=== PATIENT | female | born 1950 | race Caucasian/White ===

== ENCOUNTER 2019-11-02 17:14 | Inpatient (IN) | payer MEDICARE, BC, OTHER ==
[~2019-11-02] VITALS: Ht 142.2 cm; Wt 41.7 kg
[~2019-11-02 17:14] MED LIST: ADVIL200 MG PO; AMBIEN5 MG PO; AMITRIPTYLINE100 MG PO; AMLODIPINE BESY10 MG PO; AZILECT1 MG PO; BENEDRYL PO; CARVEDILOL6.25 MG PO; COMBIPATCH 0.01 EAC1; COMBIPATCH 0.01 EAC1 TP; DAYQUIL PO; ETOMIDATE 2 MG/ML 10 ML INJ IV ONE; GABAPENTIN300 MG PO; HYDROXYCHLOROQ200 MG PO; LOMOTIL TABLET1 EACH PO; LOSARTAN POTAS100 MG PO; MAXALT10 MG PO; METHADONE HCL10 MG PO; MIDAZOLAM HCL 2 MG/2 ML VIAL ONE; NORCO 5-325 TA1 EACH PO; PANTOPRAZOLE SO40 MG PO; PROMETHAZINE HC25 M1 PO; SUMATRIPTAN INJ; VALTREX500 MG PO; VECURONIUM BROMIDE FOR INJ 20 MG VIAL ONE; VITAMIN D PO; WATER STERILE 10 ML VIAL ONE
[2019-11-02] MEDS ORDERED: CEFEPIME 1GM/NS 0.9% 50 ML 50 ML IV STA (17:22)
[2019-11-02] MEDS ORDERED: SODIUM CHLORIDE 0.9% 1000ML 1,000 ML IV STA (17:22)
--- OUTSIDE RECORDS SUMMARY | 2019-11-02 17:30 | XMS REPORT | Clinical Summary ---
Author Author [facility] Organization [facility] Address Unknown Phone Unavailable Care Team Providers Care Mechanical Intern Name Role Phone Ulises Palomares MD PCP Allergies No Known Allergies Medications End Date Status Medication Sig Dispensed Refills Start Date Active pantoprazole (PROTONIX) TK 1 T PO BID 0 40 MG EC tablet 6 Active amLODIPine (NORVASC) 10 TK 1 T PO QD 0 MG tablet 6 Active zolpidem (AMBIEN) 10 mg TK 1 T PO QHS 0 tablet 6 Active methadone (DOLOPHINE) 10 TK 1 T PO BID 0 10/31 MG tablet PRN 6 Active carvedilol (COREG) 6.25 TK 1 T PO BID 1 MG tablet WITH FOOD 6 Active promethazine (PHENERGAN) TK 1 T PO Q 8 1 11/14 25 MG tablet H 6 Active donepezil (ARICEPT) 5 MG TK 1 T PO HS 2 11/14 tablet 6 Active amitriptyline (ELAVIL) TK 1 T PO HS 1 01 100 MG tablet 6 Active rizatriptan (MAXALT) 10 2 MG tablet 6 Active selegiline (ELDEPRYL) 5 TK 1 C PO 5 mg capsule WITH 6 BREAKFAST OR LUNCH FOR 1 WEEK THEN INCREASE TO BID Active pramipexole (MIRAPEX) TK 1 T PO TID 1 11/15/19 1 0.25 MG tablet BEFORE 6 BEDTIME Active hydroxychloroquine TK 1 T PO BID 3 (PLAQUENIL) 200 mg tablet 6 Active gabapentin (NEURONTIN) TK 1 C PO QHS 3 01 300 MG capsule 6 Active rasagiline (AZILECT) 1 MG TK 1 T PO QD 1 11/28 tablet 7 Active predniSONE (DELTASONE) 5 TK 1 T PO 3 12/14 mg tablet QD. 7 Active methotrexate 2.5 MG TK 4 TS PO Q 4 tablet WEEK. 7 Active folic acid (FOLVITE) 1 MG TK 1 T PO QD 5 11/28 tablet 7 Active ESTRACE 0.01 % (0.1 Insert 0.5 42.5 g 0 mg/gram) vaginal Gram into 8 creamIndications: vagina three Postmenopausal atrophic times a week. vaginitis Active valACYclovir (VALTREX) TAKE 1 TABLET 10 tablet 0 0 500 MG tabletIndications: BY MOUTH 8 HSV (herpes simplex TWICE DAILY virus) anogenital FOR 5 DAYS infection Active Problems Problem Noted Date Acid reflux Family History Relation Name Status Comments Brother Alive Father muscle disease (Age 81) Mother Alive Sister Alive Social History Date Tobacco Use Types Packs/Day Years Used Current Every Day Smoker Cigarettes 1 45 Tobacco Cessation: Ready to Quit: Yes; C ounseling Given: No Drinks/Week oz/Week Comments Alcohol Use No Sex Assigned at Date Recorded Not on file Industry Job Start Date Occupation Not on file Not on file Not on file Travel End Travel History Travel Start No recent travel history available. Last Filed Vital Signs Not on file Plan of Treatment Health Maintenance Due Date Last Done Comments BREAST CANCER SCREENING 1998 COLONOSCOPY SCREENING 1998 SHINGLES VACCINES (#1) 1998 65+ PNEUMOCOCCAL VACCINE 2013 (1 of 2 - PCV13) INFLUENZA VACCINE 12/30/2019 Results Not on fileafter 11/01/2018 Insurance Type Payer Benefit Subscriber ID Effective Phone Address Plan / Dates Group Medicare MEDICARE MEDICARE xxxxxxxxxx 2013- [place], PART A AND Present [place] B PPO BCBS BCBS xxxxxxxxxxxx 2013-P CARLOS arce PPO/ADELA NAVA PPO Advance Directives For more information, please contact: [phone] Patient Tour Driver Explanation Type Date Recorded Advance Directives, Living Will and 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
[2019-11-02 18:15] LABS: ALANINE AMINOTRANSFERASE 20 IU/L (0-55); ALBUMIN 3.3 g/dL (3.5-5.0); ALBUMIN/GLOBULIN RATIO 1.1 (0.8-2.0); ALKALINE PHOSPHATASE 68 IU/L (40-150); ANION GAP 14.5 mmol/L (8-16); BLOOD UREA NITROGEN 5 mg/dL (7-26); BUN/CREATININE RATIO 8 (6-25); CALCIUM 6.6 mg/dL (8.4-10.2); CARBON DIOXIDE 28 mmol/L (22-29); CHLORIDE 100 mmol/L (98-107); CREATINE KINASE 185 IU/L (29-168); CREATININE, SERUM 0.63 mg/dL (0.57-1.11); EST GLOMERULAR FILTRATION RATE > 60 ML/MIN (60-); GLUCOSE 136 mg/dL (74-118); POTASSIUM 3.5 mmol/L (3.5-5.1); SODIUM 139 mmol/L (136-145)
[2019-11-02 18:17] LABS: BASOPHILS % 0.1 % (0.0-1.0); HEMATOCRIT 25.9 % (34.2-44.1); HEMOGLOBIN 7.5 g/dL (12.0-16.0); LYMPHOCYTES % 1.3 % (18.0-39.1); MEAN CORPUSCULAR HEMOGLOBIN 23.6 pg (28-32); MEAN CORPUSCULAR HGB CONC 23.6 g/dL (31-35); MEAN CORPUSCULAR VOLUME 81.4 fL (81-99); MONOCYTES % 0.7 % (4.4-11.3); NEUTROPHILS % 8.4 % (38.7-80.0); PLATELET COUNT 438 x10e3/uL (140-360); RED BLOOD COUNT 3.18 x10e6/uL (3.6-5.1); RED CELL DISTRIBUTION WIDTH 19.4 % (11.7-14.4)
--- NOTE | 2019-11-02 18:55 | Emergency Department Note ---
History of Present Illnes History of Present Illness Chief Complaint: Respiratory History of Present Illness This is a 69 year old female to the ED complains of shortness of breath, consistent spicy and gravis crisis. Chief Complaint Comment HISTORY OF MYASTHENIA GRAVIS, CALLED EMS FOR TROUBLE BREATHING, WAS IN 88% [facility]2 [facility]. CLIENT WAS GIVEN XOPENEX, IPRAPTROPIUM, SOLU MEDROL 125 AND TERBUTALINE ADVICE NURSE, CLIENT WAS 99% O2 SATS ON ARRIVAL WITH EMS. Historian: Patient Arrival Mode: Car Onset (how long ago): day(s) Onset quality: sudden Timing of current episode: constant Progression: worsening Past Medical/Family History Physician Review I have reviewed the patient's past medical and family history. Any updates have been documented here. Past Medical History Recent Fever: No Clinical Suspicion of Infectio: No New/Unexplained Change in Ment: No Other Medical History: MYASTHENIA GRAVIS Social History Smoking Cessation: Never Smoker Counseling Performed: No Alcohol Use: None Any Illegal Drug Use: No TB Exposure/Symptoms: No Physically hurt or threatened: No Other Any Pre-Existing Lines (PICC,: No Is patient up to date on immun: Yes Last Flu: utd Last Pneumovax: utd Review of Systems Review of Systems Constitutional: no symptoms EENTM: no symptoms Cardiovascular: no symptoms Respiratory: as per HPI, cough, dyspnea Gastrointestinal: no symptoms Genitourinary: no symptoms Musculoskeletal: no symptoms Neurological: no symptoms Psychological: no symptoms Endocrine: no symptoms Hematological/Lymphatic: no symptoms Review of other systems All other systems reviewed and negative. Physical Exam Related Data Allergies: Coded Allergies: No Known Drug Allergies (Verified Allergy, Unknown, 10/18/07) Uncoded Allergies: PLASTIC TAPE (Allergy, Unknown, 10/18/07) Triage Vital Signs Vital Signs Date Time Temp Pulse Resp B/P (MAP) Pulse Ox O2 Delivery O2 Flow Rate FiO2 11/02/19 17:17 98.1 94 14 104/69 100 Vital signs reviewed: Yes Physical Exam CONSTITUTIONAL Constitutional: well-developed, well-nourished, ill appearing HENT HENT: normocephalic, atraumatic, oropharynx clear/moist, nose normal HENT L/R: left ext ear normal, right ext ear normal EYES Eyes: PERRL, conjunctivae normal NECK Neck: ROM normal PULMONARY Pulmonary: respiratory distress CARDIOVASCULAR Cardiovascular: regular rhythm, tachycardia GASTROINTESTINAL Abdominal: soft, nontender, bowel sounds normal GENITOURINARY Genitourinary: exam deferred SKIN Skin: warm, dry MUSCULOSKELETAL Musculoskeletal: ROM normal NEUROLOGICAL Neurological: alert, oriented x 3, no gross motor or sensory deficits PSYCHOLOGICAL Psychological: mood/affect normal, judgement normal Results Laboratory Result Diagram: 11/02/19 1729 11/02/19 1729 Laboratory Laboratory Tests Test 11/02/19 17:29 White Blood Count 10.51 x10e3/uL (4.8-10.8) Red Blood Count 3.18 x10e6/uL (3.6-5.1) Hemoglobin 7.5 g/dL (12.0-16.0) Hematocrit 25.9 % (34.2-44.1) Mean Corpuscular Volume 81.4 fL (81-99) Mean Corpuscular Hemoglobin 23.6 pg (28-32) Mean Corpuscular Hemoglobin Concent 23.6 g/dL (31-35) Red Cell Distribution Width 19.4 % (11.7-14.4) Platelet Count 438 x10e3/uL (140-360) Neutrophils (%) (Auto) 8.4 % (38.7-80.0) Lymphocytes (%) (Auto) 1.3 % (18.0-39.1) Monocytes (%) (Auto) 0.7 % (4.4-11.3) Eosinophils (%) (Auto) 0.0 % (0.0-6.0) Basophils (%) (Auto) 0.1 % (0.0-1.0) Neutrophils # (Auto) (2.1-6.9) Lymphocytes # (Auto) (1.0-3.2) Monocytes # (Auto) (0.2-0.8) Eosinophils # (Auto) (0.0-0.4) Basophils # (Auto) (0.0-0.1) Absolute Immature Granulocyte (auto x10e3/uL (0-0.1) Sodium Level 139 mmol/L (136-145) Potassium Level 3.5 mmol/L (3.5-5.1) Chloride Level 100 mmol/L (98-107) Carbon Dioxide Level 28 mmol/L (22-29) Anion Gap 14.5 mmol/L (8-16) Blood Urea Nitrogen 5 mg/dL (7-26) Creatinine 0.63 mg/dL (0.57-1.11) Estimat Glomerular Filtration Rate > 60 ML/MIN (60-) BUN/Creatinine Ratio 8 (6-25) Glucose Level 136 mg/dL (74-118) Lactic Acid Level 1.8 mmol/L (0.5-2.0) Calcium Level 6.6 mg/dL (8.4-10.2) Total Bilirubin 0.5 mg/dL (0.2-1.2) Aspartate Amino Transf (AST/SGOT) 25 IU/L (5-34) Alanine Aminotransferase (ALT/SGPT) 20 IU/L (0-55) Alkaline Phosphatase 68 IU/L (40-150) Creatine Kinase 185 IU/L (29-168) Creatine Kinase MB 2.00 ng/mL (0-5.0) Troponin I 0.029 ng/mL (0-0.300) Total Protein 6.2 g/dL (6.5-8.1) Albumin 3.3 g/dL (3.5-5.0) Globulin 2.9 g/dL (2.3-3.5) Albumin/Globulin Ratio 1.1 (0.8-2.0) Lab results reviewed: Yes Critical Care Time Subsequent provider I assumed direction of critical care for this patient from another provider of my specialty. Assessment & Plan Assessment & Plan Final Impression: (1) ACUTE RESPIRATORY FAILURE WITH HYPERCAPNIA (2) ACUTE RESPIRATORY DISTRESS Assessment & Plan Patient to the ED in acute respiratory distress, question history of myasthenia gravis crisis. Patient was immediately placed on BiPAP. Indication for BiPAP was due to respiratory distress secondary to an underlying pulmonary issue. There was no infectious etiology present at time of initial ED evaluation. Patient's lab work reviewed further workup including imaging and disposition was given to Dr. Holloway. Dr. Villanueva was consulted from pulmonary for further workup and management. Physostigmine possibly given according to his bilateral recommendation. Depart Disposition: ADMITTED Last Vital Signs Date Time Temp Pulse Resp B/P (MAP) Pulse Ox O2 Delivery O2 Flow Rate FiO2 11/02/19 18:52 90 12 106/70 100 11/02/19 17:19 98.4 Home Meds Reported Medications [Dayquil] No Conflict Check, PO DAILY 06/15/14 [Benedryl] No Conflict Check, PO DAILY 06/15/14 Ibuprofen (ADVIL) 200 Mg Tablet, 200 MG PO PRN 06/15/14 [Vitamin D] No Conflict Check, 15564 PO WEEKLY 06/15/14 Gabapentin (GABAPENTIN) 300 Mg Capsule, 300 MG PO DAILY, #60 CAP 06/15/14 Hydroxychloroquine Sulfate (HYDROXYCHLOROQUINE SULFATE) 200 Mg Tablet, 200 MG PO BID PRN for G 06/15/14 Rasagiline Mesylate (AZILECT) 1 Mg Tablet, 1 MG PO DAILY 06/15/14 [Sumatriptan] No Conflict Check, 6 MG INJ DAILY 06/15/14 Promethazine Hcl (PROMETHAZINE HCL) 25 Mg Tablet, 25 MG PO DAILY, TAB 06/15/14 Rizatriptan Benzoate (MAXALT) 10 Mg Tablet, 10 MG PO PRN 06/15/14 Amitriptyline Hcl (AMITRIPTYLINE HCL) 100 Mg Tablet, 100 MG PO DAILY 06/15/14 Pantoprazole Sodium* (PROTONIX) 40 Mg Tablet.dr, 40 MG PO DAILY, TAB 06/15/14 Methadone Hcl (METHADONE HCL) 10 Mg Tablet, 10 MG PO DAILY 06/15/14 Hydrocodone Bit/Acetaminophen (NORCO 5-325 TABLET) 1 Each Tablet, 1-2 TAB PO Q4 PRN 10/17/12 Zolpidem Tartrate (AMBIEN) 5 Mg Tablet, 5 MG PO BEDTIME 10/13/12 Estradiol/Noreth Ac (COMBIPATCH 0.05-0.25 MG PTCH) 1 Each Patch.tdsw, 2XW, #1 WEDNESDAY AND Wednesday10/13/12 Valacyclovir Hcl (VALTREX) 500 Mg Tab, 500 MG PO PRN 10/13/12 Diphenoxylate Hcl/Atropine (LOMOTIL TABLET) 1 Each Tablet, PO PRN 10/13/12 Losartan Potassium (LOSARTAN POTASSIUM) 100 Mg Tablet, 100 MG PO HS 10/13/12 Carvedilol (CARVEDILOL) 6.25 Mg Tablet, 6.25 MG PO BID 10/13/12 Amlodipine Besylate (AMLODIPINE BESYLATE) 10 Mg Tablet, 10 MG PO DAILY 10/13/12 Medications in the ED Sodium Chloride 1,000 ml @ 0 mls/hr Q0M STAT IV Last administered on 11/02/19at 18:15; Admin Dose 999 MLS/HR; Start 11/02/19 at 17:22; Stop 11/02/19 at 17:27; Status DC Cefepime HCl 50 ml @ 50 mls/hr ONCE STAT IV Last administered on 11/02/19at 18:15; Admin Dose 50 MLS/HR; Start 11/02/19 at 17:22; Stop 11/02/19 at 18:21; Status DC Sodium Chloride 1,000 ml @ 150 mls/hr Q6H40M IV ; Start 11/02/19 at 18:30; Stop 12/02/19 at 18:29 Physician Attestation Provider Attestation Patient signed to Dr. Holloway for further workup and final disposition. ANKUSH MIRANDA DO Nov 02, 2019 18:55
--- NOTE | 2019-11-02 19:29 | Diagnostic Imaging Report ---
EXAMINATION: CHEST SINGLE (PORTABLE) INDICATION: Respiratory distress. COMPARISON: None FINDINGS: Rotation on the film. TUBES and LINES: None. LUNGS: Lungs are well inflated. There are bibasilar atelectasis. There is mild prominence of the central pulmonary vasculature, consistent with pulmonary venous congestion. Mild bilateral perihilar, peribronchial thickening and perihilar streaky densities. PLEURA: No pleural effusion or pneumothorax. HEART AND MEDIASTINUM: Cardiac size is moderately enlarged. BONES AND SOFT TISSUES: No acute osseous lesion. Soft tissues are unremarkable. UPPER ABDOMEN: No free air under the diaphragm. IMPRESSION: Findings suggestive of pulmonary venous congestion and interstitial edema. Superimposed viral infection or reactive airway disease cannot be excluded. Signed by: Dr. Jacquie Cobos M.D. on 11/02/2019 7:26 PM
[2019-11-02] MEDS ORDERED: HYDROXYCHLOROQUINE SULFATE 200 MG TAB PO PRN (19:45)
--- OUTSIDE RECORDS SUMMARY | 2019-11-02 20:07 | XMS REPORT | Continuity of Care Document ---
Author Author [facility] t Organization [facility] Address [address] [place] [address] Phone Unavailable Care Team Providers Care Pump House Technician Name Role Phone Ulises Palomares MD PCP Tony CLEMONS Attphyrebecca Unavailable Tony CLEMONS Admluisa Unavailable Problems Condition Name Condition Details Condition Category Status Onset Date Resolution Date Last Treatment Date Treating Clinician Comments Source Acid reflux Acid reflux Disease Active Farooq Moran Allergies, Adverse Reactions, Alerts This patient has no known allergies or adverse reactions. Social History Social Habit Start Date Stop Date Quantity Comments Source History of tobacco use Cigarette Smoker Farooq Moran Sex Assigned At Hari Moran Cigarettes smoked current (pack per day) - Reported 00:00:00 2016-12-28 00:00:00 Farooq Moran Cigarette pack-years 2016-12-28 00:00:00 2016-12-28 00:00:00 Farooq Moran Alcohol intake 2016-12-28 00:00:00 2016-12-28 00:00:00 Current non-drinker of alcohol (finding) Farooq Moran Smoking Status Start Date Stop Date Source Current every day smoker 2016-12-28 00:00:00 Hari Moran Medications Ordered Medication Name Filled Medication Name Start Date Stop Da te Current Medication? Ordering Clinician Indication Dosage Frequency Signature (SIG) Comments Components Source valACYclovir (VALTREX) 500 MG tablet 2018-01-14 00:00:00 Yes HSV (herpes simplex virus) anogenital infection TAKE 1 TABLET BY MOUTH TWICE DAILY FOR 5 DAYS Farooq Moran ESTRACE 0.01 % (0.1 mg/gram) vaginal cream 2017-10-26 00:00: 00 Yes Postmenopausal atrophic vaginitis Insert 0.5 Gram into vagina three times a week. Farooq Moran predniSONE (DELTASONE) 5 mg tablet 2016-12-14 00:00:00 Yes TK 1 T PO QD. Farooq Moran folic acid (FOLVITE) 1 MG tablet 2016-12-14 00:00:00 Yes TK 1 T PO QD Farooq Moran rasagiline (AZILECT) 1 MG tablet 2016-12-12 00:00:00 Yes TK 1 T PO QD Farooq Moran methotrexate 2.5 MG tablet 2016-12-12 00:00:00 Yes TK 4 TS PO Q WEEK. Farooq Moran selegiline (ELDEPRYL) 5 mg capsule 2015-11-27 00:00:00 Yes TK 1 C PO WITH BREAKFAST OR LUNCH FOR 1 WEEK THEN INCREASE TO BID Farooq Moran zolpidem (AMBIEN) 10 mg tablet 2015-11-15 00:00:00 Yes TK 1 T PO QHS Farooq Moran carvedilol (COREG) 6.25 MG tablet 2015-11-15 00:00:00 Yes TK 1 T PO BID WITH FOOD Farooq Moran promethazine (PHENERGAN) 25 MG tablet 2015-11-15 00:00:00 Y es TK 1 T PO Q 8 H Farooq Moran donepezil (ARICEPT) 5 MG tablet 2015-11-15 00:00:00 Yes TK 1 T PO HS Farooq Moran amitriptyline (ELAVIL) 100 MG tablet 2015-11-15 00:00:00 Ye s TK 1 T PO HS Farooq Moran rizatriptan (MAXALT) 10 MG tablet 2015-11-15 00:00:00 Yes Farooq Moran pramipexole (MIRAPEX) 0.25 MG tablet 2015-11-15 00:00:00 Ye s TK 1 T PO TID BEFORE BEDTIME Farooq Moran hydroxychloroquine (PLAQUENIL) 200 mg tablet 2015-11-15 00:00:00 Yes TK 1 T PO BID Farooq mccullough gabapentin (NEURONTIN) 300 MG capsule 2015-11-15 00:00:00 Y es TK 1 C PO QHS Farooq Moran methadone (DOLOPHINE) 10 MG tablet 2015-11-01 00:00:00 Yes TK 1 T PO BID PRN Farooq Moran amLODIPine (NORVASC) 10 MG tablet 2015-09-17 00:00:00 Yes TK 1 T PO QD Farooq Moran pantoprazole (PROTONIX) 40 MG EC tablet 2015-09-04 00:00:00 Yes TK 1 T PO BID [facility] Procedures This patient has no known procedures. Plan of Care Planned Activity Planned Date Details Comments Source Future Scheduled Test 2019-12-30 00:00:00 INFLUENZA VACCINE [code = INFLUENZA VACCINE] [facility] Future Scheduled Test 2013 00:00:00 65+ PNEUMOCOCCAL V ACCINE (1 of 2 - PCV13) [code = 65+ PNEUMOCOCCAL VACCINE (1 of 2 - PCV13)] [facility] Future Scheduled Test 1998 00:00:00 BREAST CANCER SCRE ENING [code = BREAST CANCER SCREENING] [facility] Future Scheduled Test 1998 00:00:00 COLONOSCOPY SCREEN ING [code = COLONOSCOPY SCREENING] [facility] Future Scheduled Test 1998 00:00:00 SHINGLES VACCINES (#1) [code = SHINGLES VACCINES (#1)] [facility] Results Test Description Test Time Test Comments Results Result Comments Source CHEST SINGLE (PORTABLE) 2019-11-02 19:24:00 [place] [address] Patient Name: JOE FUENTES MR #: [id number] : 1950 Age/Sex: 69/F Req #: [id number] Adm Physician: Ordered by: ANKUSH MIRANDA DO Report #: [id number] Location: ER Room/Bed: Procedure: [id number] DX/CHEST SINGLE (PORTABLE) Exam Date: 11/02/19 Exam Time: 1850 REPORT STATUS: Signed EXAMINATION: CHEST SINGLE (PORTABLE) INDICATION: Respiratory distress. COMPARISON: None FINDINGS: Rotation on the film. TUBES and LINES: None. LUNGS: Lungs are well inflated. There are bibasilar atelectasis. There is mild prominence of the central pulmonary vasculature, consistent with pulmonary venous congestion. Mild bilateral perihilar, peribronchial thickening and perihilar streaky densities. PLEURA: No pleural effusion or pneumothorax. HEART AND MEDIASTINUM: Cardiac size is moderately enlarged. BONES AND SOFT TISSUES: No acute osseous lesion. Soft tissues are unremarkable. UPPER ABDOMEN: No free air under the diaphragm. IMPRESSION: Findings suggestive of pulmonary venous congestion and interstitial edema. Superimposed viral infection or reactive airway disease cannot be excluded. Signed by: Dr. Jacquie Hernandez M.D. on 11/02/2019 7:26 PM Dictated By: GIANNA HERNANDEZ MD, MD 25 Transcribed By: JOYCE on 11/02/191925 COPY TO: ANKUSH MIRANDA DO
--- OUTSIDE RECORDS SUMMARY | 2019-11-02 20:07 | XMS REPORT | Clinical Summary ---
Author Author [facility] Organization [facility] Address Unknown Phone Unavailable Care Team Providers Care Restrictive Preparation Operator Name Role Phone Ulises Palomares MD PCP [...] Advance Directives For more information, please contact: [phone] Patient Telesales Professional Explanation Type Date Recorded Advance Directives, Living Will and Medical Power of Assembler Tester
[2019-11-02] MEDS ORDERED: IOPAMIDOL 370 MG/ML 200 ML INFUS..BTL INJ ONE (20:43)
[2019-11-02] MEDS ORDERED: SODIUM CHLORIDE 0.9% 50ML 50 ML ONE (20:43)
[2019-11-02] MEDS: GABAPENTIN 300 MG CAP PO SCH (20:48)
[2019-11-02] MEDS: SODIUM CHLORIDE 0.9% 1000ML 1,000 ML IV SCH ×2 (20:48→22:01)
[2019-11-02] MEDS: METHYLPREDNISOLONE SOD SUCC 40 MG/ML VIAL 1ML IV SCH (20:48)
[2019-11-02 21:40] VITALS: BP 104/62
[2019-11-02 22:00] VITALS: BP 94/65
--- NOTE | 2019-11-02 22:00 | Consultation ---
DATE OF CONSULTATION: Pulmonary Critical Care Consultation CHIEF COMPLAINT: Dyspnea with a history of myasthenia gravis and rheumatoid arthritis. HISTORY OF PRESENT ILLNESS: The patient is a 69-year-old woman. She has a history of myasthenia gravis. She uses Mestinon as well as low-dose prednisone. She also has a history of rheumatoid arthritis and Parkinson disease. She notes worsening dyspnea over the past several months. She notes some weakness in her extremities and some atrophy. She does not complain of ptosis or abnormal voice. She denies fever or cough. PAST MEDICAL HISTORY: 1. Rheumatoid arthritis. 2. Myasthenia gravis. 3. Chronic back pain, requiring methadone. 4. No prior history of heart disease. 5. No prior history of asthma or COPD. SOCIAL HISTORY: The patient quit smoking many years ago. She is not an active drinker. PAST SURGICAL HISTORY: Noncontributory. ALLERGIES: THE PATIENT IS ALLERGIC TO PLASTIC TAPE. FAMILY HISTORY: Noncontributory. REVIEW OF SYSTEMS: There is no history of fever. She has no headache. She has chronic neck pain. She is not complaining of chest pain. She does have dyspnea. She also notes some weakness in her extremities. She does not complain of abdominal pain. There is no nausea or vomiting, or diarrhea. She denies any skin rashes. PHYSICAL EXAMINATION: VITAL SIGNS: The blood pressure is 106/70 and the saturation is 100%. The pulse is 90. HEENT: Shows no facial swelling or erythema. The oropharynx is normal. LYMPHATIC: Shows no submandibular, cervical, or supraclavicular adenopathy. CARDIAC: Reveals a regular rate and rhythm with normal S1 and S2. LUNGS: Auscultation of lungs reveals decreased breath sounds at the bases. There is no wheezing. ABDOMEN: Soft and nontender. There is no rebound or guarding. EXTREMITIES: Shows no leg edema. NEUROLOGICAL: Shows some weakness in the extremities particularly in the right leg. The patient does not have any ptosis or cranial nerve abnormalities. LABORATORY DATA: White blood cell count is 10.7 and the hemoglobin is 7.5. MCV is 81.4. The platelet count is 438. The BUN to creatinine ratio is 5 to 0.63. Other electrolytes are within normal limits. Liver tests are normal. RADIOGRAPHIC DATA: Chest x-ray shows some interstitial edema. IMPRESSION: 1. Gradually worsening dyspnea. 2. Myasthenia gravis. 3. Rheumatoid arthritis. 4. Parkinson disease. 5. Anemia, unspecified. 6. Chronic back pain, requiring methadone. PLAN: 1. The patient will go to [facility] on BiPAP. 2. Vital capacities every shift. 3. Solu-Medrol 40 mg IV q.12. 4. Mestinon. 5. CT scan of the chest. 6. Echocardiogram. 7. Decrease dose of methadone for now in order to prevent worsening of respiratory problems. Brad Villanueva MD [facility]/MOD[facility] /[id number]
[2019-11-02] MEDS: PYRIDOSTIGMINE BROMIDE 60 MG TAB PO SCH (22:01)
[2019-11-02] MEDS: ZOLPIDEM TARTRATE 5 MG TAB PO PRN (22:02)
[2019-11-02 22:49] VITALS: BP 107/67
--- NOTE | 2019-11-02 22:54 | Diagnostic Imaging Report ---
CT chest pulmonary embolism protocol CPT code: 78874 INDICATION: ^dyspnea ^[id number] ^[id number] TECHNIQUE: Thin collimation axial images obtained through the level of the pulmonary arteries with additional imaging through the chest following the uneventful administration of 100 cc of low osmolar, nonionic intravenous contrast. Images reconstructed into coronal and sagittal MIPs for complete evaluation of the tortuous and overlapping pulmonary vascular structures and to reduce patient radiation dose. RADIATION DOSE: Total DLP: 455.27 mGy*cm Estimated effective dose: (DLP x 0.015 x size factor) mSv CTDIvol has been reviewed. It is below the limits set by the Radiation Protocol Committee (RPC). Dose reduction techniques used: Automated exposure control, adjustment of the mAs and/or kVp according to patient size, standardized low-dose protocol, and/or iterative reconstruction technique. COMPARISON: Chest x-ray 1855 hours. FINDINGS: Pulmonary artery: No filling defects are appreciated within the main, left, right, lobar or visualized segmental pulmonary arteries to suggest embolism. The main pulmonary artery measures 2.9 cm. The right pulmonary artery measures 2.7 cm. The left pulmonary artery measures 2.5 cm. Aorta: The aortic arch is tortuous with scattered calcifications. The descending thoracic aorta is tortuous without aneurysmal dilatation. No dissection. Lymph nodes: No enlarged axillary or subclavicular lymph nodes. Precarinal lymph node measures 11 mm in AP dimension. Prevascular lymph node measures 8 mm in AP dimension. No enlarged hilar lymph nodes. Thyroid: Nodule in the right lobe measures 18 mm. Mediastinum: The heart is enlarged with heavy calcifications throughout the coronary arteries. No pericardial effusion. The esophagus is collapsed. Lungs: Right Lung: Centrilobular emphysema and diffuse bronchial wall thickening suggestive of chronic bronchitis. Subsegmental lower lobe atelectasis. No infiltrates. No nodules. Left Lung: Centrilobular emphysema and diffuse bronchial wall thickening suggestive of chronic bronchitis. Subsegmental atelectasis in the posterior lingula and lower lobe. Pleura: Small bilateral pleural effusions. No pneumothorax or pleural based mass. Abdomen: The gallbladder is absent. Mild bile duct dilatation suggestive of reservoir effect. There are chain sutures at the GE junction. No mass or lymphadenopathy in the visualized upper abdomen. The large bowel is interposed between the anterior abdominal wall and the liver. No evidence of bowel obstruction. Bones: Multiple compression fractures of T5, T6, and T7 of approximately 50% T12 compression fracture of approximately 40%. There is dextroscoliosis of the lower thoracic spine. No destructive lesions. There are several healed left rib fractures. No evidence of acute fracture. Soft tissues: Bilateral breast prostheses. Mild subcutaneous edema. IMPRESSION: 1. No evidence of pulmonary or aortic dissection. 2. Emphysema and chronic bronchitis. Small bilateral pleural effusions and bibasilar atelectasis. 3. Multiple age-indeterminate compression fractures of the thoracic spine. 4. Cardiomegaly. Prominent pulmonary arteries suggestive of pulmonary artery hypertension. Signed by: Dr. Vandana Denise MD on 11/02/2019 10:50 PM
[2019-11-02 23:00] VITALS: BP 94/64
[2019-11-03] VITALS (25 sets, daily range): BP systolic 92–141; BP diastolic 59–118
[2019-11-03 05:45] LABS: BASOPHILS % 0.2 % (0.0-1.0); LYMPHOCYTES # (AUTO) 0.4 (1.0-3.2); LYMPHOCYTES % 8.4 % (18.0-39.1); MEAN CORPUSCULAR HEMOGLOBIN 23.3 pg (28-32); MEAN CORPUSCULAR HGB CONC 28.7 g/dL (31-35); MEAN CORPUSCULAR VOLUME 81.1 fL (81-99); MONOCYTES # (AUTO) 0.1 (0.2-0.8); MONOCYTES % 2.3 % (4.4-11.3); NEUTROPHILS # (AUTO) 4.7 (2.1-6.9); NEUTROPHILS % 88.3 % (38.7-80.0); PLATELET COUNT 350 x10e3/uL (140-360); RED BLOOD COUNT 2.75 x10e6/uL (3.6-5.1); RED CELL DISTRIBUTION WIDTH 19.5 % (11.7-14.4)
[2019-11-03 05:48] LABS: HEMATOCRIT 22.3 % (34.2-44.1)
[2019-11-03 05:49] LABS: HEMOGLOBIN 6.4 g/dL (12.0-16.0)
[2019-11-03 06:06] LABS: ALANINE AMINOTRANSFERASE 14 IU/L (0-55); ALBUMIN 2.7 g/dL (3.5-5.0); ALBUMIN/GLOBULIN RATIO 1.1 (0.8-2.0); ALKALINE PHOSPHATASE 53 IU/L (40-150); ANION GAP 13.5 mmol/L (8-16); BLOOD UREA NITROGEN 5 mg/dL (7-26); BUN/CREATININE RATIO 9 (6-25); CARBON DIOXIDE 27 mmol/L (22-29); CHLORIDE 104 mmol/L (98-107); CREATININE, SERUM 0.56 mg/dL (0.57-1.11); EST GLOMERULAR FILTRATION RATE > 60 ML/MIN (60-); GLUCOSE 91 mg/dL (74-118); POTASSIUM 3.5 mmol/L (3.5-5.1); SODIUM 141 mmol/L (136-145)
[2019-11-03] MEDS: PYRIDOSTIGMINE BROMIDE 60 MG TAB PO SCH ×3 (06:17→21:44)
--- NOTE | 2019-11-03 06:37 | NUR ---
Dr. Christine Villanueva called with critical hemoglobin and critical calcium. Ordered to give 1uPRBC. No replacement orders for calcium. Ordered to stop IV fluids.
[2019-11-03] MEDS ORDERED: SODIUM CHLORIDE 0.9% 250ML 250 ML IV ONE (06:55)
[2019-11-03] MEDS ORDERED: CALCIUM GLUCONATE 10% INJ 13.95 MEQ in SODIUM CHLORIDE 0.9% 100 ML 100 ML IV ONE (08:15)
[2019-11-03 08:41] LABS: ABG PCO2 52 mmHg (35-45); ABG PH 7.35 (7.35-7.45); ABG PO2 155 mmHg (80-105)
[2019-11-03 08:42] LABS: ABG HCO3 29 mmol/L (22-26)
[2019-11-03] MEDS ORDERED: METHADONE HCL 10 MG TAB PO SCH (09:00)
[2019-11-03] MEDS: METHADONE HCL 5 MG TAB PO SCH (09:25)
[2019-11-03] MEDS: PANTOPRAZOLE SOD 40 MG TABEC PO SCH (09:25)
[2019-11-03] MEDS: METHYLPREDNISOLONE SOD SUCC 40 MG/ML VIAL 1ML IV SCH ×2 (09:25→21:44)
[2019-11-03] MEDS: GABAPENTIN 300 MG CAP PO SCH ×2 (09:26→21:44)
[2019-11-03 12:29] LABS: HYPOCHROMASIA SLIGHT
[2019-11-03 12:30] LABS: RBC MORPHOLOGY COMMENT ABNORMAL
[2019-11-03] MEDS ORDERED: IOPAMIDOL 370 MG/ML 200 ML INFUS..BTL INJ ONE (14:45)
--- NOTE | 2019-11-03 15:14 | Progress Note ---
DATE: SUBJECTIVE: The patient remained on BiPAP last night. She has less dyspnea. Her blood count was 6.4 this morning. There is no obvious bleeding. She does not complain of fevers. She is not complaining of headache or chest pain. PHYSICAL EXAMINATION: VITAL SIGNS: Blood pressure is 121/71, saturation is 96%. She is on BiPAP for oxygen. HEENT: No facial swelling or erythema. CARDIAC: Regular rate and rhythm with a normal S1 and S2. LUNGS: Auscultation of the lungs shows decreased breath sounds at the bases. There is no wheezing. ABDOMEN: Soft, nontender. There is no rebound or guarding. EXTREMITIES: No leg edema or calf tenderness. There is no cyanosis or clubbing. SKIN: No rashes. LABORATORY DATA: White blood cell count is 5.2 and hemoglobin is 6.4. The platelet count is 350,000. BUN to creatinine ratio is 5 to 0.56. Calcium is 6.0. RADIOGRAPHIC DATA: CT scan of chest shows centrilobular emphysema and chronic bronchitis. There is an age indeterminate compression fracture in the thoracic spine. There is some cardiomegaly. IMPRESSION: 1. Acute on chronic respiratory failure. 2. Myasthenia gravis. 3. Rheumatoid arthritis. 4. Parkinson disease. 5. Anemia. 6. Chronic back pain. PLAN: 1. The patient will receive packed red blood cells. 2. Continue to follow vital capacities. 3. Continue Solu-Medrol and Mestinon. 4. Await echocardiogram. 5. Neurology consultation. MD ANTOINETTE Abarca/ZENOBIA /[id number]
--- NOTE | 2019-11-03 15:25 | NUR ---
Nutrition Intervention Note RD Recommendation(s) for Physician: -Continue regular diet -Recommend Ensure Enlive nutrition supplement daily for added nutrition Plan of Care: RD following, monitoring for tolerance and adequacy Nutrition reason for involvement: consult RD Assessment (11/03/19) Pt is a 69 year old female admitted with myasthenia gravis. Pt reports she is eating >50% of her meals. Prior to admission, pt mentioned she was eating about half of her meals and was drinking a nutrition supplement daily. Pt stated she had unintentionally lost weight and used to weigh 130 lbs a year ago. Pt currently has a weight of 116 lbs in chart. This would be a 11% weight loss in 1 year which is considered non-significant weight loss. Pt was interested in a nutrition supplement daily during admission. No N/V, but pt reports diarrhea for the last 2 days. No chewing/swallowing issues. Will continue to monitor. Principal Problems/Diagnoses: myasthenia gravis PMH: rheumatoid arthritis, myasthenia gravis, chronic back pain GI: flat, soft, non-tender abdomen Skin: intact Labs: (11/03/19) Na 141, K 3.5, BUN 5, Cr 0.56, Glu 91 Meds: methylprednisolone, protonix Ht: 63 inches Wt: 116 lbs BMI: 20.5 kg/m2 IBW: 115 lbs Malnutrition Evaluation (11/03/19) The patient does not meet criteria for a specified degree of malnutrition at this time. Will re-evaluate at follow-up as appropriate. Energy intake: Adequate PO intake reported at this time Weight loss: 11% weight loss in 1 year - Not significant weight loss Fat loss: pt showed some fat loss in tricep region Supporting Evidence: Fluid accumulation: no edema per MD note Functional Status: unable to evaluate Nutrition Prescription (Diet Order): regular Estimated Nutritional Needs: [id number] calories/day (25-35 kcal/kg CBW) 53-79 g protein/day (1-1.5 g pro/kg CBW) Diet Adequacy: Pt reports she is eating >50% of meals Tolerance: Tolerating PO Diet Education Needs Assessment: Diet education not indicated; patient on regular diet. Nutrition Care Level: low Nutrition Diagnosis: Unintended weight loss related to predicted h/o inadequate energy intake as evidenced by 11% weight loss in 1 year. Goal: Patient will meet 75-100% of estimated needs by follow up Progress: N/A Interventions: -General healthful diet, Commercial beverage Monitoring/Evaluation: -Total energy intake, Total protein intake, Liquid supplement, Weight change Signed: Jing Bosch RD, LD
--- NOTE | 2019-11-03 15:40 | Consultation ---
DATE OF CONSULTATION: Neurology Consultation REASON FOR CONSULTATION: For evaluation of myasthenia gravis. HISTORY OF PRESENT ILLNESS: Mrs. Payan is a 69-year-old female with a history of myasthenia gravis, diagnosed about 3 years ago, taking pretty much only prednisone p.r.n. and Mestinon as needed for control of disease, on disease modifying agents, diagnosed by Dr. Case. She also has a history of rheumatoid arthritis, COPD. She states she was previously told she has Parkinson disease, but at this point it seems to be . In the hospital now for respiratory dysfunction, distress. PAST MEDICAL HISTORY: Includes myasthenia gravis, rheumatoid arthritis, back pain, and COPD. SOCIAL HISTORY: History of smoking in the past. No active alcohol use. PAST SURGICAL HISTORY: Not significant. ALLERGIES: THE PATIENT IS ALLERGIC TO PLASTIC TAPE. FAMILY HISTORY: Noncontributory. REVIEW OF SYSTEMS: She endorses stroke. Shortness of breath and cough. Diffuse weakness at times and arthralgias, but otherwise 14-point review of systems is negative. PHYSICAL EXAMINATION: VITAL SIGNS: Blood pressure is 120/88, saturating currently 97% on nasal cannula, and pulse is 87. HEENT: Her extraocular muscles intact. Face symmetric. Tongue midline. Speech is clear. She does have some temporal wasting. No nuchal rigidity. Trachea is midline. CARDIOVASCULAR: Regular rate and rhythm. PULMONARY: She is with distant sounds and wheezy. ABDOMEN: Soft, nontender. NEURO: Strength in upper extremities is 4+/5, lower extremities is 4/5. Reflexes are symmetric. There is no ataxia on exam. She is oriented x3. Speech is fluent, clear, and receptive. No dysphagia or dysarthria. No ataxia and as mentioned above, sensory and motor exam grossly normal and symmetric. ASSESSMENT AND PLAN: Seeing the patient with dyspnea, chronic obstructive pulmonary disease, history of myasthenia. She is already on Mestinon. I am going to check cholinergic labs. If her symptoms progress, we can always initiate IVIG, otherwise we can consider starting the patient on long-term after discharge for myasthenic antibodies are elevated. . I appreciate being involved in her care. MD NATHAN SALGUERO /[id number]
--- NOTE | 2019-11-03 19:42 | Diagnostic Imaging Report ---
EXAMINATION: CHEST SINGLE (PORTABLE) INDICATION: Dyspnea. COMPARISON: 11/02/2019. FINDINGS: TUBES and LINES: None. LUNGS: The lungs are moderately inflated. Redemonstration of prominence of the central pulmonary vasculature, consistent with pulmonary venous congestion. Interval increase in bilateral perihilar, peribronchial thickening and perihilar streaky densities. PLEURA: No pneumothorax. Small left pleural effusion. HEART AND MEDIASTINUM: Cardiac size is moderately enlarged. There are atherosclerotic calcifications within the aorta. BONES AND SOFT TISSUES: No acute osseous lesion. Soft tissues are unremarkable. UPPER ABDOMEN: No free air under the diaphragm. IMPRESSION: Interval increase in bilateral perihilar, peribronchial thickening may be in part related to hypoinflation compared to the prior exam, or increased bronchitis/viral infection. Signed by: Dr. Jacquie Cobos M.D. on 11/03/2019 7:38 PM
[2019-11-03 19:48] LABS: HEMATOCRIT 28.1 % (34.2-44.1); HEMOGLOBIN 8.4 g/dL (12.0-16.0)
--- NOTE | 2019-11-03 20:45 | Progress Note ---
DATE: SUBJECTIVE: The patient is a 69-year-old female, who came in with myasthenic crisis. The patient was given steroids and Mestinon. The patient is feeling better. Shortness of breath and strength has come back. The patient has been seen by Neurology and also by person investigator. The patient also has history of chronic obstructive pulmonary disorder, which has augmented her myasthenia. The patient's cholinergic labs have been checked. OBJECTIVE: VITAL SIGNS: Temperature is 97.9, pulse of 94, respirations of 18, pulse oximetry of 97% on 3 L of oxygen. HEENT: Normocephalic and atraumatic. Pupils are reactive. CVS: S1 and S2 normal. Regular rate and rhythm. LUNGS: Decreased air entry into all lung arreola. ABDOMEN: Nontender, nondistended. EXTREMITIES: No clubbing, no cyanosis, no edema. The patient does look pale. MEDICATIONS: Currently on Mestinon 60 mg q.8 hours p.o., gabapentin q.12 hours, methadone 5 mg daily, Solu-Medrol q.12 hours 40 mg, pantoprazole 40 mg, zolpidem 5 mg, amitriptyline 100 mg daily, and Azilect 1 mg daily. The patient is also taking hydroxychloroquine 200 mg. ADDITIONAL DIAGNOSIS: Parkinson disease. LABORATORY VALUES: Today's white count is 5.26, hemoglobin of 6.4, hematocrit 22.3. Chemistries, calcium is low at 6.0, creatinine count is 185, parathyroid hormone, PTH interpretation pending. Serology: Coronavirus nondetected and did not see cholinergic antibodies sent at this time. ASSESSMENT: Ms. Ora Garcia with acute on chronic respiratory failure, acute blood loss anemia, myasthenia gravis, rheumatoid arthritis, Parkinson disease, and chronic low back pain. The patient to continue on Solu-Medrol and Mestinon. RBCs has been given to the patient. The patient is getting oxygen support. Echocardiogram has been ordered and we will await for echo results. Further recommendation per clinical course. We will continue to monitor the patient. The patient's CT chest showed cardiomegaly and multiple age indeterminate compression fractures on account of steroids. MD MYRON Alexandra/ZENOBIA /[id number]
[2019-11-03] MEDS: ZOLPIDEM TARTRATE 5 MG TAB PO PRN (21:44)
[2019-11-04] VITALS (25 sets, daily range): BP systolic 100–144; BP diastolic 73–96
[2019-11-04 05:22] LABS: BASOPHILS % 0.1 % (0.0-1.0); HEMATOCRIT 29.1 % (34.2-44.1); HEMOGLOBIN 8.7 g/dL (12.0-16.0); LYMPHOCYTES # (AUTO) 0.6 (1.0-3.2); LYMPHOCYTES % 4.9 % (18.0-39.1); MEAN CORPUSCULAR HEMOGLOBIN 24.7 pg (28-32); MEAN CORPUSCULAR HGB CONC 29.9 g/dL (31-35); MEAN CORPUSCULAR VOLUME 82.7 fL (81-99); MONOCYTES # (AUTO) 0.7 (0.2-0.8); MONOCYTES % 6.1 % (4.4-11.3); NEUTROPHILS # (AUTO) 9.9 (2.1-6.9); NEUTROPHILS % 88.3 % (38.7-80.0); PLATELET COUNT 355 x10e3/uL (140-360); RED BLOOD COUNT 3.52 x10e6/uL (3.6-5.1); RED CELL DISTRIBUTION WIDTH 18.6 % (11.7-14.4)
[2019-11-04] MEDS: PYRIDOSTIGMINE BROMIDE 60 MG TAB PO SCH ×3 (05:36→22:41)
[2019-11-04 05:51] LABS: ALANINE AMINOTRANSFERASE 15 IU/L (0-55); ALBUMIN 2.9 g/dL (3.5-5.0); ALBUMIN/GLOBULIN RATIO 1.1 (0.8-2.0); ALKALINE PHOSPHATASE 61 IU/L (40-150); ANION GAP 11.6 mmol/L (8-16); BLOOD UREA NITROGEN 6 mg/dL (7-26); BUN/CREATININE RATIO 10 (6-25); CARBON DIOXIDE 31 mmol/L (22-29); CHLORIDE 99 mmol/L (98-107); CREATININE, SERUM 0.62 mg/dL (0.57-1.11); EST GLOMERULAR FILTRATION RATE > 60 ML/MIN (60-); GLUCOSE 165 mg/dL (74-118); POTASSIUM 3.6 mmol/L (3.5-5.1); SODIUM 138 mmol/L (136-145)
[2019-11-04 08:15] LABS: ANISOCYTOSIS SLIGHT; HYPOCHROMASIA MODERATE; LYMPHOCYTES % (MANUAL) 10 % (19-48); MONOCYTES % (MANUAL) 3 % (3.4-9.0); NEUTROPHILS % (MANUAL) 87 % (40-74); PLATELET ESTIMATE ADEQUATE; PLATELET MORPHOLOGY COMMENT NORMAL
--- NOTE | 2019-11-04 09:48 | Progress Note ---
DATE: SUBJECTIVE: The patient is a 69-year-old female who came in with acute exacerbation of emphysema and also for myasthenic crisis. Currently, on amitriptyline; hydroxyzine for her rheumatoid arthritis; methadone for pain control; Solu-Medrol, pantoprazole for GI prophylaxis; and Azilect for her Parkinson's disease. Feeling better. She feels like there is a field blister coming on for her. She is feeling okay. Shortness of breath exacerbated. OBJECTIVE: VITAL SIGNS: Temperature is 97.8, pulse of 89, respirations of 20, blood pressure is 123/83, pulse oximetry of 99%. She had her BiPAP on throughout the night, is off the BiPAP right now. HEENT: Normocephalic and atraumatic. The patient has torticollis. CVS: S1 and S2 normal. Regular rate and rhythm. ABDOMEN: Nontender and nondistended. LUNGS: Decreased air entry into all lung arreola. Positive for a few inspiratory wheezes. EXTREMITIES: No clubbing, no cyanosis, no edema. LABORATORY VALUES: White count is 11,000, hemoglobin of 8.7, hematocrit of 29.1, status post 1 unit of PRBC, and platelet count is 355. There is slight left shift of 9.9. Chemistries are pending. Calcium has been trending low at 6.0. PTH and vitamin D3 are pending. SEROLOGY: Coronavirus nondetected. IMAGING STUDIES: Chest x-ray done yesterday showed increase in bilateral perihilar and peribronchial thickening secondary to hyperinflation. ASSESSMENT: Ms. Ora Garcia with: 1. Chronic obstructive pulmonary disease exacerbation. 2. Myasthenia gravis. 3. Parkinson disease. 4. Immunocompromised status with rheumatoid arthritis, on Plaquenil. 5. Debility and cachexia. 6. Possible osteoporosis with spinal changes. PLAN: Awaiting parathyroid hormone, awaiting ionized calcium. Possibly, the patient has secondary hyperparathyroidism. We will continue monitoring the patient's calcium levels. Respiratory lópez, the patient is doing better on the BiPAP and oxygen status. Her pain has improved considerably. Compression fracture, secondary to osteoporosis, we will continue managing this with methadone and if needed, Miacalcin for pain control. Further recommendation per clinical course. We will continue to monitor the patient and also while the patient is in-house, an echocardiogram will be ordered in view of her cardiomegaly. Further recommendation per clinical course. We will continue to monitor the patient along with consultants and replace electrolytes as needed and O2 support as needed. MD MYRON Alexandra/ZENOBIA /[id number]
--- NOTE | 2019-11-04 09:53 | Progress Note ---
DATE: Pulmonary Critical Care Progress Note SUBJECTIVE: The patient had more difficulty breathing yesterday. She had to be put back on BiPAP last night. Her vital capacity yesterday was 0.9 L and is still pending today. She was seen by Neurology. They recommended checking the acetylcholine receptor antibody level and considering IVIG. The patient is already on steroids and Mestinon. OBJECTIVE: VITAL SIGNS: The patient is afebrile. The blood pressure is 118/96, saturation is 96% on 4 L. HEENT: Shows no facial swelling or erythema. CARDIAC: Reveals regular rate and rhythm with normal S1 and S2. LUNGS: Auscultation of lungs shows decreased breath sounds at the bases. There is no wheezing. ABDOMEN: Soft, nontender. There is no rebound or guarding. EXTREMITIES: Shows no leg edema or calf tenderness. There is no cyanosis or clubbing. SKIN: Shows no rashes. LABORATORY DATA: White blood cell count 11.2 and hemoglobin is 8.7. The platelet count is 335. The BUN to creatinine ratio is 6 to 0.62. The carbon dioxide is 31. The albumin is 2.9. RADIOGRAPHIC DATA: Chest x-ray last night shows increased perihilar infiltrates. There are decreased lung volumes. ASSESSMENT: 1. Qenwi-dh-hkodvkf respiratory failure. 2. Myasthenia gravis. 3. Parkinson disease. 4. Rheumatoid arthritis. 5. Anemia secondary to chronic blood loss. 6. Chronic back pain. 7. Chronic systolic congestive heart failure. PLAN: 1. Continue Solu-Medrol and Mestinon. 2. Continue to monitor blood counts. 3. Await acetylcholine antibody receptors. 4. Low-dose Lasix and afterload reduction. 5. Continue to monitor vital capacity. 6. greater than 35 minutes in direct critical care time Brad Villanueva MD LM/ZENOBIA /[id number] RADHIKA
[2019-11-04] MEDS: AMITRIPTYLINE HCL 25 MG TAB PO SCH (09:59)
[2019-11-04] MEDS: METHADONE HCL 5 MG TAB PO SCH (09:59)
[2019-11-04] MEDS: METHYLPREDNISOLONE SOD SUCC 40 MG/ML VIAL 1ML IV SCH ×2 (09:59→20:24)
[2019-11-04] MEDS: RASAGILINE 1 MG TAB PO SCH (09:59)
[2019-11-04] MEDS: GABAPENTIN 300 MG CAP PO SCH ×2 (09:59→20:24)
[2019-11-04] MEDS: PANTOPRAZOLE SOD 40 MG TABEC PO SCH (09:59)
--- NOTE | 2019-11-04 11:05 | NUR ---
Dr Temi Capps aware of consult
[2019-11-04] MEDS: VALACYCLOVIR HCL 500 MG TAB PO SCH ×2 (12:00→16:34)
[2019-11-04] MEDS ORDERED: CALCIUM GLUCONATE 10% INJ 9.3 MEQ in SODIUM CHLORIDE 0.9% 100 ML 100 ML IV ONE (19:30)
[2019-11-04] MEDS: ZOLPIDEM TARTRATE 5 MG TAB PO PRN (22:41)
[2019-11-05] VITALS (17 sets, daily range): BP systolic 113–143; BP diastolic 80–99
[2019-11-05 05:55] LABS: ANION GAP 13.1 mmol/L (8-16); BLOOD UREA NITROGEN < 5 mg/dL (7-26); CALCIUM 7.4 mg/dL (8.4-10.2); CARBON DIOXIDE 39 mmol/L (22-29); CHLORIDE 94 mmol/L (98-107); CREATININE, SERUM 0.59 mg/dL (0.57-1.11); EST GLOMERULAR FILTRATION RATE > 60 ML/MIN (60-); GLUCOSE 135 mg/dL (74-118); POTASSIUM 3.1 mmol/L (3.5-5.1); SODIUM 143 mmol/L (136-145)
[2019-11-05 05:56] LABS: BUN/CREATININE RATIO 8 (6-25)
[2019-11-05 05:59] LABS: MAGNESIUM 0.8 MG/DL (1.3-2.1)
[2019-11-05] MEDS: PYRIDOSTIGMINE BROMIDE 60 MG TAB PO SCH ×3 (06:00→21:14)
[2019-11-05 06:04] LABS: BASOPHILS % 0.1 % (0.0-1.0); EOSINOPHILS % 0.1 % (0.0-6.0); HEMATOCRIT 33.1 % (34.2-44.1); LYMPHOCYTES # (AUTO) 0.6 (1.0-3.2); LYMPHOCYTES % 7.2 % (18.0-39.1); MEAN CORPUSCULAR HEMOGLOBIN 24.7 pg (28-32); MEAN CORPUSCULAR HGB CONC 30.2 g/dL (31-35); MEAN CORPUSCULAR VOLUME 81.7 fL (81-99); MONOCYTES # (AUTO) 0.6 (0.2-0.8); MONOCYTES % 7.7 % (4.4-11.3); NEUTROPHILS # (AUTO) 6.6 (2.1-6.9); NEUTROPHILS % 84.4 % (38.7-80.0); PLATELET COUNT 361 x10e3/uL (140-360); RED BLOOD COUNT 4.05 x10e6/uL (3.6-5.1); RED CELL DISTRIBUTION WIDTH 19.5 % (11.7-14.4)
[2019-11-05] MEDS ORDERED: POTASSIUM CHLORIDE 20 MEQ TAB CR PO STA (06:07)
[2019-11-05] MEDS ORDERED: MAGNESIUM SULFATE 2GM/50ML 50 ML IV ONE (06:15)
--- NOTE | 2019-11-05 06:17 | NUR ---
Dr. Jelani kebede, informed of critical Mag level and low potassium. New orders noted, see eMAR.
[2019-11-05 07:27] LABS: CALCIUM IONIZED 0.9 mmol/L (1.09-1.30)
--- NOTE | 2019-11-05 09:54 | NUR ---
awake, chatting pleasantly 97 104 133/85 eomi perrl no nuchal rigidity. rrr wheezy abd soft motor 5/5 reflexes 1/4 no ataxia a/p MG- on mestinon, tolerates therapy discucsed termite control technician immunomodulation patient will follow with primary neurology as outpt. soliris was mentioned but will be depentant on antibody levels, which remain pending
[2019-11-05] MEDS: PANTOPRAZOLE SOD 40 MG TABEC PO SCH (10:06)
[2019-11-05] MEDS: AMITRIPTYLINE HCL 25 MG TAB PO SCH (10:11)
[2019-11-05] MEDS: RASAGILINE 1 MG TAB PO SCH (10:11)
[2019-11-05] MEDS: VALACYCLOVIR HCL 500 MG TAB PO SCH ×2 (10:12→17:00)
[2019-11-05] MEDS: GABAPENTIN 300 MG CAP PO SCH ×2 (10:12→21:14)
[2019-11-05] MEDS: METHADONE HCL 5 MG TAB PO SCH (10:12)
[2019-11-05] MEDS: METHYLPREDNISOLONE SOD SUCC 40 MG/ML VIAL 1ML IV SCH ×2 (10:13→21:13)
--- NOTE | 2019-11-05 10:27 | Progress Note ---
DATE: SUBJECTIVE: This patient came in with acute respiratory failure with hypercapnia secondary to COPD exacerbation. The patient also has history of myasthenia gravis and also congestive heart failure, being followed by . Currently sleepy, had a good night, is on BiPAP, arousable, but goes right back to sleep. MEDICATIONS: The patient is on amitriptyline, gabapentin, hydroxychloroquine, methylprednisone, pantoprazole, pyridostigmine, Azilect, valacyclovir, and zolpidem. OBJECTIVE: VITAL SIGNS: Temperature is 97.9, pulse of 101, respirations of 18, blood pressure is 143/99, 100% on BiPAP. HEENT: Normocephalic, atraumatic. The patient has neck deformity. CVS: S1 and S2 normal. Regular rate and rhythm. ABDOMEN: Soft, nontender, and nondistended. EXTREMITIES: Multiple inflamed joints. No edema present. LABORATORY VALUES: White count of 7.77, hemoglobin of 10.0, status post 1 unit of PRBC, hematocrit of 33.1, platelet count is 361, neutrophil count is 84.4. Chemistries; sodium of 143, potassium of 3.1, BUN of less than 5, creatinine 0.59, glucose is 135, calcium is pending. Yesterday's ionized calcium was 0.9. A 2 g of calcium gluconate were given. The patient's magnesium was also 0.8, which we replaced with 2 g of Mag. Albumin was 2.9 on the lower side too. Parathyroid hormone 17. ASSESSMENT: Ms. Radha Payan with 1. Acute on chronic respiratory failure. 2. Chronic obstructive pulmonary disease exacerbation. 3. Myasthenia gravis. 4. Chronic congestive heart failure. 5. Chronic low back pain. 6. Acute blood loss anemia. 7. Rheumatoid arthritis. 8. Parkinson's disease. PLAN: Continue on current dose of Solu-Medrol. She is on Mestinon. Calcium has been replaced. Magnesium will be replaced. Acetylcholine receptor antibodies are still pending. Continue to monitor oxygen status and continue to monitor the patient along with other consultants. Further recommendation per clinical course. The patient will remain in the ICU. MD MYRON Alexandra/MODL /[id number]
[2019-11-05] MEDS ORDERED: CALCIUM GLUCONATE 10% INJ 9.3 MEQ in SODIUM CHLORIDE 0.9% 100 ML 100 ML IV ONE (15:00)
--- NOTE | 2019-11-05 15:51 | Diagnostic Imaging Report ---
EXAMINATION: CHEST SINGLE (PORTABLE) INDICATION: Dyspnea, myasthenia gravis. COMPARISON: Chest radiograph 11/03/2019. CT chest 11/02/2019. FINDINGS: Exam is somewhat limited by portable technique and breast tissues obscuring the lower hemithoraces. TUBES and LINES: None. LUNGS: Lungs are mildly hypoinflated. Emphysematous changes of the lungs. Mild bronchial wall thickening. There are patchy and hazy opacities in the lower lung zones. Mild bilateral interstitial opacities. PLEURA: No pneumothorax. Possible small left pleural effusion. HEART AND MEDIASTINUM: Cardiac size is moderately enlarged. There are atherosclerotic calcifications within the aorta. BONES AND SOFT TISSUES: Compression deformities of the thoracic spine are better seen on prior CT. Diffuse osteopenia. UPPER ABDOMEN: No free air under the diaphragm. IMPRESSION: Emphysematous lungs with findings of bronchitis. Bibasilar patchy opacities may represent atelectasis or infection in the appropriate clinical setting. Possible small left pleural effusion. Signed by: Dr. Jameel Thayer MD on 11/05/2019 3:48 PM
--- NOTE | 2019-11-05 16:14 | Progress Note ---
DATE: SUBJECTIVE: The patient had a low calcium and low magnesium that required repletion. She provided a history of parathyroid surgery. She is uncertain as to whether or not she has hypoparathyroidism. The patient continues to have dyspnea. She has some accessory muscle use while sitting in a chair. PHYSICAL EXAMINATION: VITAL SIGNS: Blood pressure is 127/87 and the pulse is 98, saturation is 99%, she is on 3 L. HEENT: Shows no facial swelling or erythema. CARDIAC: Reveals regular rate and rhythm with normal S1, S2. LUNGS: Auscultation of lungs reveals decreased breath sounds at the bases. There is no wheezing. ABDOMEN: Soft and nontender. There is no rebound or guarding. EXTREMITIES: Shows no leg edema or calf tenderness. There is no cyanosis or clubbing. SKIN: Shows no rashes. NEUROLOGIC: Shows weakness, but does not localize well. There are no cranial nerve abnormalities. RADIOGRAPHIC DATA: Chest x-ray showed some decreased lung volumes bilaterally. LABORATORY DATA: Blood gas is 7.35 with a CO2 of 52 and an O2 of 155. The CO3 is 29. Hemoglobin is 10 and the white blood cell count is 7.7. The platelet count is 361. Carbon dioxide is 39 and her potassium is 3.1. Her sodium is 143 and her chloride is 94. BUN to creatinine ratio is 5:0.59. Ionized calcium is 0.9 and magnesium is 0.8. IMPRESSION: 1. Acute respiratory failure secondary to neuromuscular disease. 2. Myasthenia gravis. 3. Rheumatoid arthritis. 4. Low calcium and low magnesium, suggestive of hypoparathyroidism. 5. Anemia secondary to chronic blood loss. 6. Chronic systolic congestive heart failure. 7. Parkinson disease. PLAN: 1. The patient is at very high risk for respiratory failure due to neuromuscular weakness. 2. She needs vital capacities every 12 hours and she should remain in the intensive care unit until her vital capacity is at least 1 L. 3. The patient should continue on BiPAP at night and during the day as needed. 4. The patient will require noninvasive ventilation through a VAPS device on discharge. 5. Continue Solu-Medrol and Mestinon for now. The patient may also require IVIG. 6. Await acetylcholine receptor antibodies. 7. Continue to monitor and replace calcium and magnesium. 8. Dr. Palomares ordered one, 25-dihydroxyvitamin D level as well as a parathyroid hormone level, this is still pending. 9. Continue current cardiac regimen and follow any additional recommendations from Cardiology. 10. Wean methadone if possible, as this may be a respiratory depressant and contribute to her hypoventilation. 11. Case discussed with nursing, Respiratory, and patient. Greater than 35 minutes in direct critical care time. MD ANTOINETTE Abarca/ZENOBIA /[id number]
[2019-11-05] MEDS: ZOLPIDEM TARTRATE 5 MG TAB PO PRN (21:14)
[2019-11-06] VITALS (26 sets, daily range): BP systolic 107–148; BP diastolic 68–98
--- NOTE | 2019-11-06 03:51 | Consultation ---
DATE OF CONSULTATION: 11/04/2019 Cardiology Consult Note REASON FOR CONSULT: Chest pain. CHIEF COMPLAINT: Weakness and shortness of breath. HISTORY OF PRESENT ILLNESS: A 69-year-old female with history of myasthenia gravis. She presents with worsening dyspnea over the past several days and weakness in the lower extremities, admitted to ICU due to concern for respiratory failure in the setting of myasthenia gravis. No previous history of CAD or CHF. PAST MEDICAL HISTORY: As above. REVIEW OF SYSTEMS: As per HPI, otherwise negative. SOCIAL HISTORY: Does not smoke, drink, or abuse drugs. FAMILY HISTORY: Noncontributory. OUTPATIENT MEDICATIONS: Reviewed. ALLERGIES: NO KNOWN DRUG ALLERGIES. PHYSICAL EXAMINATION: VITAL SIGNS: Temperature afebrile, pulse 106, respiratory rate 18, blood pressure . GENERAL: An elderly female, in no acute distress. CARDIOVASCULAR: Regular rate and rhythm. No murmurs, rubs, or gallops. LUNGS: Clear to auscultation anteriorly for respiratory effort. ABDOMEN: Soft, nontender, and nondistended: NEURO AND PSYCH: Alert and oriented to person, place, and time. Normal affect. INPATIENT MEDICATIONS: Reviewed. LABORATORY DATA: Reviewed. Notable for hemoglobin of 6.4, improved to 8.7, transfusion. Troponin negative. TELEMETRY DATA: Reviewed, shows sinus rhythm with occasional sinus tachycardia. ASSESSMENT/PLAN: 1. Myasthenia gravis exacerbation. 2. Shortness of breath. 3. Chest pain. PLAN: Troponins are negative, not having any more chest pain. Continue care for myasthenia gravis per Critical Care and Neurology. Echocardiogram is pending to rule out LV any dysfunction. Thank you for this consult. We will continue to follow. MD JUAN J Gardner/ZENOBIA /[id number]
[2019-11-06 05:04] LABS: BASOPHILS % 0.1 % (0.0-1.0); EOSINOPHILS % 0.1 % (0.0-6.0); HEMATOCRIT 34.8 % (34.2-44.1); HEMOGLOBIN 10.3 g/dL (12.0-16.0); LYMPHOCYTES # (AUTO) 0.6 (1.0-3.2); LYMPHOCYTES % 5.7 % (18.0-39.1); MEAN CORPUSCULAR HEMOGLOBIN 24.6 pg (28-32); MEAN CORPUSCULAR HGB CONC 29.6 g/dL (31-35); MEAN CORPUSCULAR VOLUME 83.3 fL (81-99); MONOCYTES # (AUTO) 0.8 (0.2-0.8); NEUTROPHILS # (AUTO) 9.6 (2.1-6.9); NEUTROPHILS % 86.6 % (38.7-80.0); PLATELET COUNT 321 x10e3/uL (140-360); RED BLOOD COUNT 4.18 x10e6/uL (3.6-5.1); RED CELL DISTRIBUTION WIDTH 20.1 % (11.7-14.4)
[2019-11-06 05:21] LABS: ALANINE AMINOTRANSFERASE 17 IU/L (0-55); ALBUMIN 2.7 g/dL (3.5-5.0); ALBUMIN/GLOBULIN RATIO 0.8 (0.8-2.0); ALKALINE PHOSPHATASE 63 IU/L (40-150); ANION GAP 13.8 mmol/L (8-16); BLOOD UREA NITROGEN 9 mg/dL (7-26); BUN/CREATININE RATIO 16 (6-25); CARBON DIOXIDE 34 mmol/L (22-29); CHLORIDE 96 mmol/L (98-107); CREATININE, SERUM 0.57 mg/dL (0.57-1.11); EST GLOMERULAR FILTRATION RATE > 60 ML/MIN (60-); GLUCOSE 176 mg/dL (74-118); MAGNESIUM 1.4 MG/DL (1.3-2.1); POTASSIUM 3.8 mmol/L (3.5-5.1); SODIUM 140 mmol/L (136-145)
[2019-11-06] MEDS: PYRIDOSTIGMINE BROMIDE 60 MG TAB PO SCH ×3 (05:31→22:00)
[2019-11-06] MEDS: PANTOPRAZOLE SOD 40 MG TABEC PO SCH (07:30)
[2019-11-06] MEDS: METHYLPREDNISOLONE SOD SUCC 40 MG/ML VIAL 1ML IV SCH ×2 (09:00→22:00)
[2019-11-06] MEDS: AMITRIPTYLINE HCL 25 MG TAB PO SCH (09:00)
[2019-11-06] MEDS: RASAGILINE 1 MG TAB PO SCH (09:00)
[2019-11-06] MEDS: METHADONE HCL 5 MG TAB PO SCH ×2 (09:00→10:06)
[2019-11-06] MEDS: GABAPENTIN 300 MG CAP PO SCH ×2 (09:00→22:00)
[2019-11-06] MEDS: VALACYCLOVIR HCL 500 MG TAB PO SCH ×2 (09:00→17:39)
--- NOTE | 2019-11-06 12:01 | NUR ---
awake, chatting pleasantly 98 103 107/76 eomi perrl no nuchal rigidity. 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 soliris was mentioned but will be depentant on antibody levels, which remain pending
--- NOTE | 2019-11-06 12:27 | NUR ---
will add ivig for mytasthenic progression cannot do plasmapharesis but her respiratory status is suffering ivig 0.7 g/kg x 3 days slow infusion, pretreat with benadryl and acetominophen
[2019-11-06] MEDS: ACETAMINOPHEN 325 MG TAB PO PRN (13:48)
--- NOTE | 2019-11-06 14:55 | Progress Note ---
DATE: SUBJECTIVE: The patient continues to have some dyspnea. She is using the BiPAP at night and intermittently during the day. She is otherwise on oxygen by nasal cannula. She has some tachycardia. She denies chest pain or fevers. PHYSICAL EXAMINATION: VITAL SIGNS: The blood pressure is 129/86 and the saturation is 94% on 4 L. HEENT: Shows no facial swelling or erythema. CARDIAC: Reveals a regular rate and rhythm with normal S1 and S2. LUNGS: Auscultation of lungs reveals rhonchorous breath sounds bilaterally. There is no wheezing. ABDOMEN: Soft and nontender. There is no rebound or guarding. EXTREMITIES: Shows no leg edema or calf tenderness. There is no cyanosis or clubbing. SKIN: Shows no rashes. LABORATORY DATA: BUN to creatinine ratio is 9 to 0.57. Electrolytes are within normal limits. White blood cell count is 11 and the hemoglobin is 10.3. The platelet count is 321. IMPRESSION: 1. Acute respiratory failure secondary to neuromuscular disease. 2. Myasthenia gravis. 3. Rheumatoid arthritis. 4. Chronic systolic congestive heart failure. 5. Parkinson disease. 6. Anemia secondary to chronic blood loss. 7. Hypoparathyroidism following parathyroid surgery. PLAN: 1. Continue to use BiPAP as needed. 2. Continue Solu-Medrol as well as Mestinon. 3. The patient is scheduled to receive IVIG. 4. Acetylcholine receptor antibodies are pending. 5. Consider diuretics and afterload reduction depending on Cardiology's opinion. 6. Case discussed with nursing, patient, Respiratory, and Neurology. Greater than 35 minutes in direct critical care time. Brad Villanueva MD [facility]/MODL /[id number]
--- NOTE | 2019-11-06 19:41 | Progress Note ---
DATE: SUBJECTIVE: The patient is a 69-year-old female who came in with hypercapnia, respiratory failure, COPD exacerbation and exacerbation of myasthenia gravis. The patient is currently feeling better. Shortness of breath still continues. The patient is on BiPAP at nighttime. MEDICINE LIST: Reviewed. OBJECTIVE: VITAL SIGNS: Temperature is afebrile, pulse of 120s, respirations of 20, blood pressure is 131/91, pulse oximetry of 96% on O2 of 4 L and BiPAP at nighttime. HEENT: Normocephalic and atraumatic. Pupils are reactive. NECK: Spasms. CVS: S1 and S2 normal. Regular rate and rhythm. LUNGS: Decreased breath sounds and positive for some rhonchi. ABDOMEN: Soft, nontender. No guarding. EXTREMITIES: No clubbing, no cyanosis, no edema. LABORATORY VALUES: White count is 11,000, hemoglobin of 10.3, hematocrit of 34.8. Chemistry shows sodium 140, potassium 3.8, BUN of 9, creatinine 0.57, glucose of 176. Mag was 1.4 have replacement, ionized calcium was 0.9. Immunological values, acetylcholine receptors are still pending. IgA is still pending. No imaging studies done. ASSESSMENT: 1. Ms. Radha Payan with acute respiratory failure with hypercapnia. 2. Myasthenia gravis. 3. Rheumatoid arthritis. 4. Chronic congestive heart failure. 5. Anemia. 6. Diarrhea. 7. Debility. PLAN: The patient is to continue on BiPAP. Continue on Solu-Medrol and Mestinon. Continue with diuretics. Cardiology is on the case. The patient echocardiogram is still pending. Continue with the current care and I will keep her in the ICU and wait for improvement of her respiratory status. Continue on BiPAP. MD GLENNA AlexandraJ/MODL /[id number]
[2019-11-06] MEDS: ZOLPIDEM TARTRATE 5 MG TAB PO PRN (22:00)
[2019-11-07] VITALS (24 sets, daily range): BP systolic 109–150; BP diastolic 60–102
[2019-11-07 05:15] LABS: BASOPHILS % 0.1 % (0.0-1.0); HEMATOCRIT 35.8 % (34.2-44.1); HEMOGLOBIN 10.6 g/dL (12.0-16.0); LYMPHOCYTES # (AUTO) 0.7 (1.0-3.2); LYMPHOCYTES % 5.1 % (18.0-39.1); MEAN CORPUSCULAR HEMOGLOBIN 24.8 pg (28-32); MEAN CORPUSCULAR HGB CONC 29.6 g/dL (31-35); MEAN CORPUSCULAR VOLUME 83.8 fL (81-99); MONOCYTES # (AUTO) 0.8 (0.2-0.8); MONOCYTES % 5.8 % (4.4-11.3); NEUTROPHILS # (AUTO) 11.7 (2.1-6.9); NEUTROPHILS % 88.5 % (38.7-80.0); PLATELET COUNT 314 x10e3/uL (140-360); RED BLOOD COUNT 4.27 x10e6/uL (3.6-5.1); RED CELL DISTRIBUTION WIDTH 20.8 % (11.7-14.4)
[2019-11-07 05:44] LABS: ALANINE AMINOTRANSFERASE 21 IU/L (0-55); ALBUMIN/GLOBULIN RATIO 0.9 (0.8-2.0); ALKALINE PHOSPHATASE 62 IU/L (40-150); ANION GAP 15.9 mmol/L (8-16); BLOOD UREA NITROGEN 8 mg/dL (7-26); BUN/CREATININE RATIO 15 (6-25); CALCIUM 8.2 mg/dL (8.4-10.2); CARBON DIOXIDE 29 mmol/L (22-29); CHLORIDE 96 mmol/L (98-107); CREATININE, SERUM 0.55 mg/dL (0.57-1.11); EST GLOMERULAR FILTRATION RATE > 60 ML/MIN (60-); GLUCOSE 141 mg/dL (74-118); MAGNESIUM 1.3 MG/DL (1.3-2.1); POTASSIUM 3.9 mmol/L (3.5-5.1); SODIUM 137 mmol/L (136-145)
[2019-11-07] MEDS: ACETAMINOPHEN 325 MG TAB PO PRN ×2 (06:20→09:50)
[2019-11-07] MEDS: PYRIDOSTIGMINE BROMIDE 60 MG TAB PO SCH ×3 (06:24→21:42)
--- NOTE | 2019-11-07 06:30 | NUR ---
Pt in SVT 150s after chest xray. Called Dr. Christine Villanueva and received order for 10mg cardizem stat and start pt on cardizem gtt @ 5. Ordered to obtain 12 lead ekg also.
[2019-11-07] MEDS ORDERED: DILTIAZEM HCL 5 MG/ML 5 ML VIAL IV STA (06:43)
[2019-11-07] MEDS ORDERED: DILTIAZEM HCL VIAL 5 ML ONE (06:44)
[2019-11-07] MEDS: DILTIAZEM HCL 125 ML IV SCH (07:00)
[2019-11-07] MEDS ORDERED: CALCIUM GLUCONATE 10% INJ 9.3 MEQ in SODIUM CHLORIDE 0.9% 100 ML 100 ML IV ONE (07:15)
--- NOTE | 2019-11-07 08:22 | Diagnostic Imaging Report ---
Examination: Single AP view of the chest. COMPARISON: Chest radiograph 11/05/2019, CT chest 11/02/2019 INDICATION: Respiratory failure DISCUSSION: The lungs remain hyperinflated. Patchy airspace disease in the lower lung zones, left greater than right, unchanged. Trace left pleural effusion is again suspected. No new consolidations. Stable cardiomediastinal contour. No acute osseous abnormalities. Healing fracture deformities of the posterior left fourth and fifth ribs. Thoracic spine compression fractures seen on comparison CT are less conspicuous by plain radiography. IMPRESSION: Emphysematous changes with stable patchy left lower lobe airspace disease, which may reflect atelectasis, aspiration, or pneumonia. Signed by: Dr. Bret Ramires M.D. on 11/07/2019 8:19 AM
[2019-11-07] MEDS ORDERED: CALCIUM GLUCONATE 10% INJ 0.465 MEQ/ML VIAL ONE (08:28)
[2019-11-07] MEDS ORDERED: IMMU GLOBULIN,GAMMA (IGG) 400 ML IV SCH (09:00)
[2019-11-07] MEDS: RASAGILINE 1 MG TAB PO SCH (09:11)
[2019-11-07] MEDS: AMITRIPTYLINE HCL 25 MG TAB PO SCH (09:11)
[2019-11-07] MEDS: GABAPENTIN 300 MG CAP PO SCH ×2 (09:11→21:39)
[2019-11-07] MEDS: METHYLPREDNISOLONE SOD SUCC 40 MG/ML VIAL 1ML IV SCH ×2 (09:11→21:39)
[2019-11-07] MEDS: PANTOPRAZOLE SOD 40 MG TABEC PO SCH (09:11)
[2019-11-07] MEDS: VALACYCLOVIR HCL 500 MG TAB PO SCH ×2 (09:11→17:46)
[2019-11-07] MEDS: METHADONE HCL 5 MG TAB PO SCH (09:12)
[2019-11-07] MEDS: DIPHENHYDRAMINE HCL INJ 50 MG/ML VIAL IV PRN (09:51)
--- NOTE | 2019-11-07 11:10 | NUR ---
awake, chatting pleasantly responsive 98 103 107/76 eomi perrl no nuchal rigidity. rrr wheezy abd soft motor 5/5 reflexes 1/4 no ataxia a/p MG- on mestinon, tolerates therapy discussed snf immunomodulation patient will follow with primary neurology as outpt. soliris was mentioned but will be dependant on antibody levels, which remain pending ivig to be started today
[2019-11-07] MEDS: IMMU GLOBULIN,GAMMA (IGG) 400 ML IV SCH (11:52)
[2019-11-07] MEDS ORDERED: BELLADONNA ALK/PHENOBARBITAL 5 ML UDC PO STA (13:10)
[2019-11-07] MEDS ORDERED: MAGNESIUM/ALUMINUM/SIMETHICONE 30 ML UDC PO ONE ×2 (13:15→14:45)
--- NOTE | 2019-11-07 13:59 | Progress Note ---
DATE: SUBJECTIVE: The patient had some tachycardia and possible atrial fibrillation this morning. She was started drip and her heart rate slowed down. She continues to have some dyspnea. She used BiPAP last night and is now back on oxygen. She is receiving IVIG as well as Solu-Medrol and Mestinon. PHYSICAL EXAMINATION: VITAL SIGNS: The patient is afebrile, blood pressure is 150/84, heart rate is 70 to 80, the patient is now in a normal sinus rhythm, and she is saturating 100% on 4 L. HEENT: No facial swelling or erythema. CARDIAC: Reveals regular rate and rhythm with normal S1, S2. There are no murmurs or rubs. LUNGS: Auscultation of lungs reveals decreased breath sounds at the bases. There is no wheezing. ABDOMEN: Soft and nontender. There is no rebound or guarding. EXTREMITIES: Shows no leg edema or calf tenderness. There is no cyanosis or clubbing. SKIN: Shows no rashes. NEUROLOGICAL: Shows no focal abnormalities. LABORATORY DATA: BUN to creatinine ratio is 8 to 0.55. Other electrolytes are within normal limits. White blood cell count is 13.2 and hemoglobin is 10.6. The platelet count is 314. RADIOGRAPHIC DATA: Chest x-ray shows patchy left lower lobe airspace disease. IMPRESSION: 1. Acute respiratory failure secondary to neuromuscular disease. 2. Myasthenia gravis. 3. Dextroscoliosis and kyphosis secondary to old vertebral compression fractures. 4. Rheumatoid arthritis. 5. Chronic systolic congestive heart failure. 6. Parkinson disease. 7. Anemia secondary to chronic blood loss. 8. Hypoparathyroidism, following thyroid surgery. PLAN: 1. Continue IVIG, Solu-Medrol and Mestinon. 2. Continue BiPAP at night and oxygen during the day. 3. Await acetylcholine receptor antibodies. 4. Continue Cardizem and await further input from Cardiology. 5. The case discussed with nursing staff, the patient, Neurology, and Internal Medicine. Greater than 35 minutes in direct critical care time. MD ANTOINETTE Abarca/ZENOBIA /[id number] RADHIKA
[2019-11-07] MEDS: CEFTRIAXONE SOD 1 GM/NS 50 ML 50 ML IV SCH (14:33)
--- NOTE | 2019-11-07 20:55 | Progress Note ---
DATE: 11/07/2019 SUBJECTIVE: This patient came in with shortness of breath secondary to possible myasthenic crisis and/or acute exacerbation of chronic obstructive pulmonary disease. The patient also has kyphoscoliosis has been using a BiPAP. Last night she went into tachycardia, now the patient is started on some Cardizem drip at this time. The patient has no chest pain. Bowel movements have been ongoing without any problems. Complains of some neck pain also, abdominal pain from [id number] just epigastric in nature. PHYSICAL EXAMINATION: VITAL SIGNS: Temperature is afebrile, pulse of 106, respirations of 21, blood pressure is 122/74, pulse oximetry of 97% on 4 L of oxygen. HEENT: Normocephalic and atraumatic. Pupils reactive to light and accommodation. CVS: S1 and S2, tachy. ABDOMEN: Soft, nontender. EXTREMITIES: No clubbing, no cyanosis, no edema. LABORATORY VALUES: White count is 13,000 up today, hemoglobin 10.6, hematocrit of 35.8, and platelet count was 314 slight left shift of 11.7 neutrophil count. Sodium is 137, potassium is 3.9, BUN of 8, creatinine 0.55, calcium was 8.2, ionized calcium 1. Magnesium was 1.3. MICROBIOLOGY: Blood cultures were negative. IMAGING STUDIES: Done from today shows emphysematous changes with stable patchy left lower airspace disease. MEDICATIONS: She is on acyclovir, Rocephin q.24 hours, Mestinon. She is getting IVIG at this time for her myasthenia crisis, methadone 5 mg, Methylprednisolone 30 mg q.12 hours, sumatriptan 100 mg at nighttime, gabapentin 300 mg q.12 hours and zolpidem and hydroxychloroquine for rheumatoid arthritis. ASSESSMENT: Ms. Radha Payan with: 1. Myasthenia crisis. 2. Rheumatoid arthritis. 3. Acute respiratory failure with hypercapnia. 4. Tachycardia. 5. Debility. 6. Rheumatoid arthritis. PLAN: Continue to monitor the patient. The patient's acetylcholine receptor is still pending, currently getting IVIG. Possible shortness of breath and acute respiratory problems could be secondary to her kyphoscoliosis and also COPD exacerbation and leukocytosis. We will continue with IV antibiotics. Continue with steroids. The patient's tachycardia, Cardiology is on consult and we will continue to monitor. The patient's troponins have been negative. Further recommendation per clinical course. We will continue. Echocardiogram is pending. MD MYRON Alexandra/MODL /[id number]
[2019-11-07] MEDS: METOPROLOL TARTRATE 25 MG TAB PO SCH (23:50)
[2019-11-08] VITALS (17 sets, daily range): BP systolic 115–154; BP diastolic 72–105
--- NOTE | 2019-11-08 01:41 | Progress Note ---
DATE: 11/07/2019 Cardiology Progress Note SUBJECTIVE: The patient had an episode of what looks like atrial tachycardia or atrial flutter. This morning, heart rate about 150, resolved with some diltiazem, currently in sinus rhythm. No symptoms. OBJECTIVE: VITAL SIGNS: Temperature afebrile, pulse 105, respiratory rate 21, blood pressure 132/81, saturating 97% on 4 L cannula. GENERAL: Elderly female, in no acute distress. CARDIOVASCULAR: Regular rate and rhythm. No murmurs, rubs, or gallops. LUNGS: Clear to auscultation anteriorly. ABDOMEN: Soft, nontender, nondistended. NEURO AND PSYCH: Alert and oriented to person, place, and time. Normal affect. INPATIENT MEDICATIONS: Reviewed. LABORATORY DATA: Reviewed. TELEMETRY DATA: Reviewed, shows episode of atrial tachycardia or atrial flutter. ASSESSMENT: 1. Myasthenia gravis. 2. Atrial tachycardia/atrial flutter. 3. Acute systolic congestive heart failure. PLAN: Echocardiogram reviewed. EF seems to be depressed about 35% to 40% with episode of atrial tachycardia or atrial flutter today, now in sinus rhythm. We will add metoprolol and discontinue diltiazem as blood pressure tolerates, uptitrated necessary. Given new diagnosis of systolic CHF, will need ischemic workup once myasthenia gravis crisis is completed, currently appeared euvolemic. We will keep monitoring to see if she needs intermittent diuretics. Thank you for this consult. We will continue to follow. MD JUAN J Gardner/MODL /[id number]
[2019-11-08 05:44] LABS: BASOPHILS % 0.1 % (0.0-1.0); HEMATOCRIT 34.8 % (34.2-44.1); HEMOGLOBIN 10.1 g/dL (12.0-16.0); LYMPHOCYTES # (AUTO) 0.5 (1.0-3.2); LYMPHOCYTES % 3.5 % (18.0-39.1); MEAN CORPUSCULAR HEMOGLOBIN 25.3 pg (28-32); MEAN CORPUSCULAR VOLUME 87.2 fL (81-99); MONOCYTES # (AUTO) 0.7 (0.2-0.8); MONOCYTES % 4.6 % (4.4-11.3); NEUTROPHILS # (AUTO) 13.1 (2.1-6.9); NEUTROPHILS % 91.2 % (38.7-80.0); PLATELET COUNT 258 x10e3/uL (140-360); RED BLOOD COUNT 3.99 x10e6/uL (3.6-5.1); RED CELL DISTRIBUTION WIDTH 21.2 % (11.7-14.4)
[2019-11-08 05:53] LABS: ALANINE AMINOTRANSFERASE 28 IU/L (0-55); ALBUMIN 2.6 g/dL (3.5-5.0); ALBUMIN/GLOBULIN RATIO 0.6 (0.8-2.0); ALKALINE PHOSPHATASE 62 IU/L (40-150); ANION GAP 14.3 mmol/L (8-16); BLOOD UREA NITROGEN 9 mg/dL (7-26); BUN/CREATININE RATIO 16 (6-25); CALCIUM 7.9 mg/dL (8.4-10.2); CARBON DIOXIDE 26 mmol/L (22-29); CHLORIDE 97 mmol/L (98-107); CREATININE, SERUM 0.58 mg/dL (0.57-1.11); EST GLOMERULAR FILTRATION RATE > 60 ML/MIN (60-); GLUCOSE 235 mg/dL (74-118); MAGNESIUM 1.3 MG/DL (1.3-2.1); POTASSIUM 4.3 mmol/L (3.5-5.1); SODIUM 133 mmol/L (136-145)
[2019-11-08] MEDS: PYRIDOSTIGMINE BROMIDE 60 MG TAB PO SCH ×3 (06:27→21:34)
[2019-11-08] MEDS: DILTIAZEM HCL 125 ML IV SCH (06:27)
[2019-11-08] MEDS: METOPROLOL TARTRATE 25 MG TAB PO SCH ×4 (06:27→23:57)
--- NOTE | 2019-11-08 08:05 | NUR ---
[employer] referred by RN. Pt appeared fearful and anxious. Provided calming pastoral presence and prayer. Will follow as able. [facility] O: [phone]
[2019-11-08] MEDS: VALACYCLOVIR HCL 500 MG TAB PO SCH ×2 (08:07→19:23)
[2019-11-08] MEDS: AMITRIPTYLINE HCL 25 MG TAB PO SCH (08:07)
[2019-11-08] MEDS: GABAPENTIN 300 MG CAP PO SCH ×2 (08:07→21:34)
[2019-11-08] MEDS: PANTOPRAZOLE SOD 40 MG TABEC PO SCH (08:07)
[2019-11-08] MEDS: RASAGILINE 1 MG TAB PO SCH (08:07)
[2019-11-08] MEDS: METHYLPREDNISOLONE SOD SUCC 40 MG/ML VIAL 1ML IV SCH ×2 (08:07→21:34)
[2019-11-08] MEDS: METHADONE HCL 5 MG TAB PO SCH (08:14)
[2019-11-08] MEDS: DIPHENHYDRAMINE HCL INJ 50 MG/ML VIAL IV PRN (09:20)
[2019-11-08] MEDS: ACETAMINOPHEN 325 MG TAB PO PRN (09:20)
[2019-11-08] MEDS: IMMU GLOBULIN,GAMMA (IGG) 400 ML IV SCH (10:29)
[2019-11-08 11:37] LABS: ANISOCYTOSIS MODERATE; LYMPHOCYTES % (MANUAL) 7 % (19-48); MONOCYTES % (MANUAL) 2 % (3.4-9.0); NEUTROPHILS % (MANUAL) 91 % (40-74); RBC MORPHOLOGY COMMENT ABNORMAL
[2019-11-08 11:38] LABS: HYPOCHROMASIA SLIGHT; OVALOCYTES FEW; PLATELET ESTIMATE ADEQUATE; PLATELET MORPHOLOGY COMMENT NORMAL; POIKILOCYTOSIS SLIGHT; SCHISTOCYTES RARE
--- NOTE | 2019-11-08 12:23 | Progress Note ---
DATE: SUBJECTIVE: The patient reports some GE reflux and heartburn. It was not relieved with Maalox and . The patient's dyspnea is stable. She is not complaining of cough or fevers. PHYSICAL EXAMINATION: VITAL SIGNS: The blood pressure is 151/95 and the pulse ox is 95% on 2 L. The pulse is 94. HEENT: Shows no facial swelling or erythema. CARDIAC: Reveals regular rate and rhythm with normal S1 and S2. LUNGS: Auscultation of lungs reveals rhonchorous breath sounds bilaterally. There is no wheezing. ABDOMEN: Soft and nontender. There is no rebound or guarding. EXTREMITIES: Shows no leg edema or calf tenderness. There is no cyanosis or clubbing. SKIN: Shows no rashes. NEUROLOGICAL: Shows weakness in the proximal muscles. LABORATORY DATA: White blood cell count is 14.3 and the hemoglobin is 10.1. The platelet count is 258. The BUN to creatinine ratio is 9 to 0.58. The magnesium is 1.3. The albumin is 2.6. IMPRESSION: 1. Nkwko-rx-pacwjim respiratory failure. 2. Myasthenia gravis. 3. Atrial flutter. 4. Gastroesophageal reflux. 5. Rheumatoid arthritis. PLAN: 1. Continue BiPAP. 2. Continue Solu-Medrol, Mestinon, and IVIG. 3. Increase Protonix to twice a day and begin famotidine. 4. Continue to monitor vital capacities. 5. Continue oxygen. MD ANTOINETTE Abarca/ZENOBIA /[id number]
--- NOTE | 2019-11-08 12:30 | NUR ---
awake, chatting pleasantly responsive 98 103 107/76 eomi perrl no nuchal rigidity. rrr wheezy abd soft motor 5/5 reflexes 1/4 no ataxia a/p MG- on mestinon, tolerates therapy discussed group home immunomodulation patient will follow with primary neurology as outpt. soliris was mentioned but will be dependant on antibody levels, which remain pending ivig initiated
[2019-11-08] MEDS: CEFTRIAXONE SOD 1 GM/NS 50 ML 50 ML IV SCH (14:30)
--- NOTE | 2019-11-08 18:45 | NUR ---
Report received. Assumed care. Assessment done. See interventions. On NC but c/o SOB so placed on Bipap.
[2019-11-08] MEDS: FAMOTIDINE 20 MG/2 ML VIAL IV SCH (19:23)
[2019-11-08] MEDS: PANTOPRAZOLE 40 MG 10ML VIAL IV SCH (19:23)
--- NOTE | 2019-11-08 20:50 | Progress Note ---
DATE: SUBJECTIVE: This is a 69-year-old female who came in with acute respiratory distress. The patient has hypercapnia, continues to have shortness of breath, deterioration noted after the patient got out of bed into the chair. The patient had acute respiratory distress at that time, BiPAP put on. The patient is feeling better today right now, but still continues to deteriorate. Long discussion was done with nursing about possible end of life issues and was entertained. The patient is thinking about it. PHYSICAL EXAMINATION: VITAL SIGNS: Currently, temperature is 93.2, pulse of 94, respirations of 22, blood pressure , was on BiPAP, currently is on 2 L of oxygen. HEENT: Normocephalic and atraumatic. The patient is tachypneic, using accessory muscles for respiration. CVS: S1 and S2 normal., tachy. ABDOMEN: Nontender and nondistended. LUNGS: Decreased air entry. EXTREMITIES: No clubbing, cyanosis, or edema. LABORATORY VALUES: Today white count is 14,000 up a bit, hemoglobin of 10.1, hematocrit of 34.8, left shift still present. Chemistry shows sodium 133, BUN of 9, creatinine 0.58, magnesium is 1.3, and calcium is 1.0. Medication list reviewed. ASSESSMENT: Ms. Radha Payan with: 1. Acute respiratory failure, multifactorial including myasthenia gravis, kyphoscoliosis, and COPD exacerbation. 2. Gastroesophageal reflux. 3. Rheumatoid arthritis. 4. Parkinson's disease. PLAN: Continue with combination of Solu-Medrol, Mestinon and IVIG, BiPAP as needed, Protonix and famotidine has been done. She will have some Reglan 10 mg IV b.i.d., pain control with some [place] will be instituted. The patient has been talked about end of life issues, will entertain these and the patient and family wants to discuss this over the weekend. Further recommendation per clinical course. O2 supplementation and oxygen support. MD GLENNA AlexandraJ/MODL /[id number]
--- NOTE | 2019-11-08 23:57 | NUR ---
Stefan given for sleep per request.
[2019-11-09] VITALS (18 sets, daily range): BP systolic 114–151; BP diastolic 72–105
[2019-11-09] MEDS: METOPROLOL TARTRATE 25 MG TAB PO SCH ×3 (05:45→17:52)
[2019-11-09] MEDS: DILTIAZEM HCL 125 ML IV SCH ×2 (05:45→19:47)
[2019-11-09] MEDS: PYRIDOSTIGMINE BROMIDE 60 MG TAB PO SCH ×3 (05:45→22:00)
--- NOTE | 2019-11-09 08:31 | Progress Note ---
DATE: SUBJECTIVE: This is a 69-year-old female, who came in with respiratory distress, has a history of Parkinson's disease, history of myasthenia gravis, and COPD/emphysema. Currently, the patient is on BiPAP, breathing well, saturating well, but, however, the patient gets distress on slight movement. OBJECTIVE: VITAL SIGNS: Temperature is 97.7, pulse is 87, respirations of 30, blood pressure is 146/94. HEENT: Normocephalic and atraumatic. Pupils are reactive. CVS: S1 and S2 normal. Regular rate and rhythm. ABDOMEN: Nontender and nondistended. LUNGS: Decreased air entry into all lung arreola. EXTREMITIES: No clubbing, no cyanosis, no edema. CURRENT MEDICATIONS: Metoprolol 12.5 q.6 p.o. She is on Mestinon 60 mg q.8, Solu-Medrol 30 mg q.12h, gabapentin 300 mg q.12, pantoprazole 40 mg twice a day IV, Rocephin 1 g daily, and also on IVIG for myasthenia crisis, methadone twice a day and also on hydrocodone q.6 hours and hydroxychloroquine for her rheumatoid arthritis. LABORATORY VALUES: The patient's white count is 14, from yesterday. Chemistries; ionized calcium is 1, magnesium is 1.3 from yesterday. ASSESSMENT: Ms. Radha Payan with: 1. Acute respiratory failure, again multiple factorial including myasthenia gravis, kyphoscoliosis, chronic obstructive pulmonary disease exacerbation. 2. Gastroesophageal reflux. 3. Rheumatoid arthritis. 4. Parkinson's disease. 5. Debility. 6. Acute over chronic pain. PLAN: Continue with Solu-Medrol taper down, Mestinon and IVIG are being given. We will take her off valacyclovir at this time. BiPAP is ongoing. We will hold back on the Reglan secondary to Parkinson's. We will continue to monitor the patient. Further recommendation per clinical course. O2 supplementation and oxygen support and further care depending on the patient's and family's agreement with ongoing care including LTAC, SNF and/or inpatient rehab. MD MYRON Alexandra/MODL /[id number]
[2019-11-09] MEDS: DIPHENHYDRAMINE HCL INJ 50 MG/ML VIAL IV PRN (09:25)
[2019-11-09] MEDS: ACETAMINOPHEN 325 MG TAB PO PRN (09:26)
[2019-11-09] MEDS: GABAPENTIN 300 MG CAP PO SCH ×2 (09:50→20:47)
[2019-11-09] MEDS: IMMU GLOBULIN,GAMMA (IGG) 400 ML IV SCH (09:50)
[2019-11-09] MEDS: AMITRIPTYLINE HCL 25 MG TAB PO SCH (09:50)
[2019-11-09] MEDS: RASAGILINE 1 MG TAB PO SCH (09:50)
[2019-11-09] MEDS: METHADONE HCL 5 MG TAB PO SCH (09:50)
[2019-11-09] MEDS: METHYLPREDNISOLONE SOD SUCC 40 MG/ML VIAL 1ML IV SCH ×2 (09:50→20:47)
[2019-11-09] MEDS: PANTOPRAZOLE 40 MG 10ML VIAL IV SCH ×2 (09:50→17:18)
[2019-11-09] MEDS: FAMOTIDINE 20 MG/2 ML VIAL IV SCH ×2 (09:50→17:18)
[2019-11-09] MEDS ORDERED: METOCLOPRAMIDE HCL 10 MG/2ML VIAL ONE (10:39)
[2019-11-09] MEDS: METOCLOPRAMIDE HCL 10 MG/2ML VIAL IV SCH (11:01)
[2019-11-09] MEDS ORDERED: PROMETHAZINE 12.5MG/ NACL 0.9% 12.5 MG/50 ML BAG IV PRN (13:45)
[2019-11-09] MEDS: CEFTRIAXONE SOD 1 GM/NS 50 ML 50 ML IV SCH (14:00)
[2019-11-09] MEDS ORDERED: PROMETHAZINE 12.5MG/ NACL 0.9% 50 ML ONE (14:00)
--- NOTE | 2019-11-09 15:49 | Progress Note ---
DATE: SUBJECTIVE: The patient is still complaining of acid reflux. She remains on oxygen with BiPAP intermittently. PHYSICAL EXAMINATION: VITAL SIGNS: Blood pressure is 123/100, heart rate is 83. HEENT: Shows no facial swelling or erythema. CARDIAC: Reveals regular rate and rhythm with normal S1, S2. LUNGS: Auscultation of lungs is clear breath sounds bilaterally. There is no wheezing. ABDOMEN: Soft and nontender. There is no rebound or guarding. EXTREMITIES: Shows no leg edema or calf tenderness. There is no cyanosis or clubbing. SKIN: Shows no rashes. IMPRESSION: 1. Acute on chronic respiratory failure. 2. Myasthenia gravis. 3. Kyphoscoliosis. 4. Gastroesophageal reflux. 5. Rheumatoid arthritis. 6. Parkinson disease. PLAN: 1. Continue Solu-Medrol, Mestinon, and IVIG. 2. BiPAP as needed. 3. Continue treatment for GE reflux. 4. Physical therapy. MD ANTOINETTE Abarca/ZENOBIA /[id number]
--- NOTE | 2019-11-09 17:45 | NUR ---
awake, chatting pleasantly responsive 97.6 146/64 89 eomi perrl no nuchal rigidity. rrr wheezy abd soft motor 5/5 reflexes 1/4 no ataxia a/p MG- on mestinon, tolerates therapy discussed intermediate manager immunomodulation patient will follow with primary neurology as outpt. soliris was mentioned but will be dependant on antibody levels, which remain pending ivig initiated - toleratin therapy
--- NOTE | 2019-11-09 18:45 | NUR ---
Report received. Assumed care. Assessment done. See interventions. New Purewick placed.
[2019-11-09] MEDS: ZOLPIDEM TARTRATE 10 MG TAB PO PRN ×2 (22:00)
[2019-11-10] VITALS (29 sets, daily range): BP systolic 92–156; BP diastolic 60–109
[2019-11-10] MEDS: PYRIDOSTIGMINE BROMIDE 60 MG TAB PO SCH ×3 (05:30→20:17)
[2019-11-10] MEDS: METOPROLOL TARTRATE 25 MG TAB PO SCH ×5 (05:30→17:04)
[2019-11-10 05:53] LABS: BASOPHILS % 0.1 % (0.0-1.0); HEMATOCRIT 29.8 % (34.2-44.1); HEMOGLOBIN 8.6 g/dL (12.0-16.0); LYMPHOCYTES # (AUTO) 0.6 (1.0-3.2); LYMPHOCYTES % 6.4 % (18.0-39.1); MEAN CORPUSCULAR HEMOGLOBIN 25.4 pg (28-32); MEAN CORPUSCULAR HGB CONC 28.9 g/dL (31-35); MEAN CORPUSCULAR VOLUME 88.2 fL (81-99); MONOCYTES # (AUTO) 1.4 (0.2-0.8); MONOCYTES % 13.8 % (4.4-11.3); NEUTROPHILS # (AUTO) 7.9 (2.1-6.9); NEUTROPHILS % 79.3 % (38.7-80.0); PLATELET COUNT 223 x10e3/uL (140-360); RED BLOOD COUNT 3.38 x10e6/uL (3.6-5.1); RED CELL DISTRIBUTION WIDTH 21.2 % (11.7-14.4)
[2019-11-10 06:28] LABS: ALANINE AMINOTRANSFERASE 93 IU/L (0-55); ALBUMIN 2.7 g/dL (3.5-5.0); ALBUMIN/GLOBULIN RATIO 0.5 (0.8-2.0); ALKALINE PHOSPHATASE 67 IU/L (40-150); ANION GAP 12.1 mmol/L (8-16); BLOOD UREA NITROGEN 16 mg/dL (7-26); BUN/CREATININE RATIO 27 (6-25); CALCIUM 8.3 mg/dL (8.4-10.2); CARBON DIOXIDE 29 mmol/L (22-29); CHLORIDE 95 mmol/L (98-107); EST GLOMERULAR FILTRATION RATE > 60 ML/MIN (60-); GLUCOSE 118 mg/dL (74-118); POTASSIUM 4.1 mmol/L (3.5-5.1); SODIUM 132 mmol/L (136-145)
--- NOTE | 2019-11-10 07:24 | NUR ---
awake, chatting pleasantly responsive 97.7 87 79 150/99 eomi perrl no nuchal rigidity. rrr wheezy abd soft motor 5/5 reflexes 1/4 no ataxia a/p MG- on mestinon, tolerates therapy discussed fpc immunomodulation patient will follow with primary neurology as outpt. soliris was mentioned but will be dependant on antibody levels, which remain pending ivig initiated - tolerated therapy iga wnl antibody titers pending
[2019-11-10 08:29] LABS: ABG HCO3 35 mmol/L (22-26); ABG PCO2 49 mmHg (35-45); ABG PH 7.45 (7.35-7.45); ABG PO2 139 mmHg (80-105)
[2019-11-10] MEDS: METOCLOPRAMIDE HCL 10 MG/2ML VIAL IV SCH ×2 (08:39→16:09)
[2019-11-10] MEDS: METHYLPREDNISOLONE SOD SUCC 40 MG/ML VIAL 1ML IV SCH (08:39)
[2019-11-10] MEDS: FAMOTIDINE 20 MG/2 ML VIAL IV SCH ×2 (08:39→16:09)
[2019-11-10] MEDS: PANTOPRAZOLE 40 MG 10ML VIAL IV SCH ×2 (08:39→16:09)
[2019-11-10] MEDS: GABAPENTIN 300 MG CAP PO SCH ×2 (09:00→20:16)
[2019-11-10] MEDS: AMITRIPTYLINE HCL 25 MG TAB PO SCH (09:00)
[2019-11-10] MEDS: RASAGILINE 1 MG TAB PO SCH (09:00)
--- NOTE | 2019-11-10 10:42 | Progress Note ---
DATE: SUBJECTIVE: The patient still has some dyspnea. She is requiring BiPAP. She desaturated when being removed from the BiPAP. She does not complain of fever or chest pain. PHYSICAL EXAMINATION: VITAL SIGNS: Blood pressure is 146/97, saturation is 99%. She is on BiPAP. Her pulse is 76. HEENT: Shows no facial swelling or erythema. CARDIAC: Reveals regular rate and rhythm with normal S1 and S2. LUNGS: Auscultation of lungs reveals decreased breath sounds at the bases. There is no wheezing. ABDOMEN: Soft, nontender. There is no rebound or guarding. EXTREMITIES: Shows no leg edema or calf tenderness. There is no cyanosis or clubbing. SKIN: Shows no rashes. NEUROLOGICAL: Shows no focal abnormalities. LABORATORY DATA: BUN to creatinine ratio is normal. Sodium is 132. AST is 63 and ALT is 93. Albumin is 2.7. White blood cell count is 9.9 and hemoglobin is 8.6. The platelet count is 223. IMPRESSION: 1. Acute on chronic respiratory failure. 2. Myasthenia gravis. 3. Kyphoscoliosis leading to restrictive lung disease. 4. Gastroesophageal reflux. 5. Rheumatoid arthritis. 6. Parkinson disease. PLAN: 1. Continue Solu-Medrol, Mestinon, and IVIG. 2. Repeat ABG. 3. Continue treatment for GE reflux. 4. Physical therapy. 5. Continue bronchodilators. 6. Case discussed with Internal Medicine, Neurology, Nursing, Respiratory, patient and . 7. greater than 35 minutes in direct critical care time MD ANTOINETTE Abarca/ZENOBIA /[id number] MTDD
[2019-11-10 11:06] LABS: HYPOCHROMASIA MODERATE
[2019-11-10 11:07] LABS: PLATELET ESTIMATE ADEQUATE; PLATELET MORPHOLOGY COMMENT NORMAL; SCHISTOCYTES RARE
[2019-11-10] MEDS: LEVALBUTEROL HCL SOLN NEBU 0.63 MG/3 ML NEB INH PRN (11:20)
[2019-11-10] MEDS ORDERED: BENZOCAINE/TETRACAINE/BUTAMBEN AERO SPRAY 56 GM CAN TOP NR (11:46)
[2019-11-10] MEDS ORDERED: SODIUM CHLORIDE 0.9% 500ML 500 ML ONE (12:10)
[2019-11-10] MEDS ORDERED: MIDAZOLAM HCL 2 MG/2 ML VIAL ONE (12:25)
[2019-11-10] MEDS ORDERED: PROPOFOL IV EMULSION 50 ML IV ONE (12:26)
[2019-11-10] MEDS ORDERED: PROPOFOL IV EMULSION 10MG/ML 100 ML IV SCH (12:30)
[2019-11-10] MEDS ORDERED: MIDAZOLAM HCL 2 MG/2 ML VIAL IV STA (12:52)
[2019-11-10] MEDS: FENTANYL 2000MCG/NS 250 250 ML IV PRN ×2 (13:00→22:42)
[2019-11-10] MEDS ORDERED: FENTANYL 2000MCG/NS 250 250 ML ONE (13:19)
[2019-11-10] MEDS ORDERED: PROPOFOL IV EMULSION 100 ML IV ONE (13:30)
[2019-11-10] MEDS: PROPOFOL IV EMULSION 50 ML IV SCH (13:50)
[2019-11-10] MEDS: CEFTRIAXONE SOD 1 GM/NS 50 ML 50 ML IV SCH (13:56)
--- NOTE | 2019-11-10 13:57 | Diagnostic Imaging Report ---
EXAMINATION: CHEST XRAY LINE PLACEMENT INDICATION: Line placement COMPARISON: Chest radiograph of 11/07/2019 FINDINGS: LINES/TUBES:Endotracheal tube terminates at the level of the kalen. Right IJ central venous catheter terminates in the superior vena cava. LUNGS:The lungs are moderately inflated. Mild bibasilar patchy opacities. Haziness of pulmonary interstitial markings may be related to respiratory motion. PLEURA:No pleural effusion or pneumothorax. MEDIASTINUM:The cardiomediastinal silhouette appears unchanged in size and shape. BONES/SOFT TISSUES:No acute osseous injury. ABDOMEN:No free air under the diaphragm. IMPRESSION: Endotracheal tube terminates at the level of the kalen. Recommend withdrawal by approximately 3 cm. Right IJ central venous catheter terminates in the superior vena cava. Evaluation of lung parenchyma limited by respiratory motion artifact. Possible mild interstitial pulmonary edema. Bibasilar patchy opacities may represent atelectasis. Superimposed aspiration or pneumonia could also have this appearance in the proper clinical setting. Signed by: Frieda Davidson MD on 11/10/2019 1:54 PM
[2019-11-10] MEDS ORDERED: MIDAZOLAM HCL 50 MG in SODIUM CHLORIDE 0.9% 100 ML 90 ML IV PRN (14:00)
[2019-11-10] MEDS ORDERED: MIDAZOLAM HCL 5MG/ML 10ML VIAL 100 ML IV PRN (14:15)
--- NOTE | 2019-11-10 16:05 | Diagnostic Imaging Report ---
Exam: KUB - 2 views Indication: NG tube placement Comparison: Chest radiograph 11/07/2019 Findings: Enteric tube projects below the diaphragm with tip and side-port in the stomach. Nonobstructive bowel gas pattern. No free air. Status post cholecystectomy. No acute osseous injury. Degenerative changes of the visualized spine. Athetotic arterial calcifications. Left lung base opacity is better evaluated on dedicated chest radiograph. Impression: Enteric tube projects below the diaphragm with tip and side-port in the stomach. Signed by: Freida Davidson MD on 11/10/2019 4:02 PM
--- NOTE | 2019-11-10 16:26 | NUR ---
Nutrition Intervention Note RD Recommendation(s) for Physician: -If pt is to remain intubated, recommend initiating enteral nutrition as medically appropriate - Vital AF 1.2 @ goal rate of 40 mL/hr (provides 1152 kcal, 72 g protein, and 779 mL water) - Fluid management per MD Plan of Care: RD following, monitoring for tolerance and adequacy Nutrition reason for involvement: follow up RD Assessment (11/10/19) Follow up. Pt was discussed during interdisciplinary rounds. Pt had required BiPAP per RN and is noted that pt is now mechanically ventilated. If pt is to remain intubated, recommend initiating enteral nutrition as medically appropriate. Will continue to monitor. (11/03/19) Pt is a 69 year old female admitted with myasthenia gravis. Pt reports she is eating >50% of her meals. Prior to admission, pt mentioned she was eating about half of her meals and was drinking a nutrition supplement daily. Pt stated she had unintentionally lost weight and used to weigh 130 lbs a year ago. Pt currently has a weight of 116 lbs in chart. This would be a 11% weight loss in 1 year which is considered non-significant weight loss. Pt was interested in a nutrition supplement daily during admission. No N/V, but pt reports diarrhea for the last 2 days. No chewing/swallowing issues. Will continue to monitor. Principal Problems/Diagnoses: myasthenia gravis PMH: rheumatoid arthritis, myasthenia gravis, chronic back pain GI: flat, soft, non-tender abdomen, last recorded BM 11/09 Skin: intact Labs: (10/31/19) Na 132, K 4.1, BUN 16, Cr 0.60, Glu 118 (11/03/19) Na 141, K 3.5, BUN 5, Cr 0.56, Glu 91 Meds: Reglan, pepcid, protonix, methylprednisolone, antibiotic, metoprolol, fentanyl, propofol Ht: 63 inches Wt: 121 lbs (11/09) 116 lbs (11/01) BMI: 21.4 kg/m2 IBW: 115 lbs Malnutrition Evaluation (11/03/19) The patient does not meet criteria for a specified degree of malnutrition at this time. Will re-evaluate at follow-up as appropriate. Energy intake: Adequate PO intake reported Weight loss: 11% weight loss in 1 year - Not significant weight loss Fat loss: pt showed some fat loss in tricep region Supporting Evidence: Fluid accumulation: no edema per MD note Functional Status: unable to evaluate Nutrition Prescription (Diet Order): NPO Estimated Nutritional Needs: 7450-1881 calories/day (20-25 kcal/kg CBW) Weight used: 116 lbs 63-105 g protein/day (1.2-2 g pro/kg CBW) Weight used: 116 lbs Diet Adequacy: pt is currently NPO Tolerance: pt is NPO Diet Education Needs Assessment: Diet education not indicated Nutrition Care Level: moderate Nutrition Diagnosis: Inadequate oral intake related to medical status as evidenced by insufficient energy intake from diet compared to needs (pt is NPO) Goal: Patient will meet 75-100% of estimated needs by follow up Progress: pt is currently NPO Interventions: -Composition, Rate, Route Monitoring/Evaluation: -Total energy intake, Total protein intake, Weight change, Formula/Solution Signed: Jing Bosch RD, GISEL
[2019-11-10 16:30] LABS: ABG HCO3 33 mmol/L (22-26); ABG PCO2 38 mmHg (35-45); ABG PH 7.55 (7.35-7.45); ABG PO2 135 mmHg (80-105)
--- NOTE | 2019-11-10 18:46 | NUR ---
ABG results called to dr. Christine Villanueva. Pt having shortness of breath and tachypnea on bipap and high flow nasal cannula. pt also complaining of diaphragm pain and back pain. Dr. Christine villanueva aware. Dr. Christine Villanueva at bedside to evaluate pt and discuss code status. Pt intubated at 1220 and emergency central line placed due to poor IV access. Orders given for restraints, sedation, Valentine catheter and NGT. Chest x ray and kub ordered to verify line placement. Dr. Christine villanueva made aware of ABG results.
--- NOTE | 2019-11-10 19:54 | Operative Report ---
DATE OF PROCEDURE: SURGEON: Brad Villanueva MD PROCEDURE: Central line placement under ultrasound guidance. PREOPERATIVE DIAGNOSIS: Myasthenia gravis. POSTOPERATIVE DIAGNOSIS: Myasthenia gravis. CONSENT: Consent was obtained from the patient's. ANESTHESIA: 1% lidocaine for local anesthesia. PROCEDURE IN DETAIL: The right neck was prepped sterilely with chlorhexidine. The ultrasound machine was used to visualize the right internal jugular vein. The area was anesthetized with 1% lidocaine. A 16-gauge needle was used to cannulate the vein under direct visualization. A wire was then passed through the needle. Skin was dilated and a triple-lumen catheter was passed over the wire by the Seldinger technique. All the ports flushed. COMPLICATIONS: None. ESTIMATED BLOOD LOSS: None. Brad Villanueva MD [facility]/MODL /[id number]
--- NOTE | 2019-11-10 19:55 | NUR ---
RECEIVED PATIENT IN BED, INTUBATED AND SEDATED WITH PROPOFOL RUNNING AT 15ML/HR AND FENTANYL AT 21.9ML/HR WITH NO SIGNS OF DISTRESS NOTED. WILL CONT TO MONITOR.
--- NOTE | 2019-11-10 19:59 | Operative Report ---
DATE OF PROCEDURE: SURGEON: Brad Villanueva MD PROCEDURE: Endotracheal intubation. PREOPERATIVE DIAGNOSIS: Acute on chronic respiratory failure. POSTOPERATIVE DIAGNOSIS: Acute on chronic respiratory failure. CONSENT: Consent was obtained from the patient and . MEDICATIONS: Cetacaine spray, etomidate 14 mg and Versed 2 mg. DESCRIPTION OF PROCEDURE: The patient was placed in a supine position. She was given Versed 1 mg and her oropharynx was anesthetized with Cetacaine spray. A GlideScope was then used to visualize the glottis. A 7.5 endotracheal tube was passed through the glottis under direct visualization on the first attempt. There was good CO2 return. There were equal breath sounds bilaterally. COMPLICATIONS: None. ESTIMATED BLOOD LOSS: None. Brad Villanueva MD [facility]/MODL /[id number]
[2019-11-10] MEDS: METHYLPREDNISOLONE SOD SUCC 125 MG/2ML VIAL IV SCH (20:15)
--- NOTE | 2019-11-10 20:38 | NUR ---
STARTED PATIENT ON TUBE FEED DIET PER ORDER BY DR CLEMONS VIA NG TUBE AT STARTING RATE OF 10ML/HR WILL CONT TO INCREASE TO 30ML/HR. PT RESTING IN BED WITH NO SIGNS OF DISTRESS NOTED. WILL CONT TO MONITOR.
[2019-11-10] MEDS ORDERED: METHYLPREDNISOLONE SOD SUCC 40 MG/ML VIAL 1ML IV SCH (21:00)
--- NOTE | 2019-11-10 21:15 | Progress Note ---
DATE: SUBJECTIVE: A 69-year-old female, who came in with acute respiratory distress. The patient was very tachypneic, using respiratory muscles in the morning. Intubation was done. The patient is currently sedated on propofol with the blood pressure in 100s/60s. Family notified and consents were obtained. OBJECTIVE: VITAL SIGNS: Right now, pulse of 64, respirations 16, blood pressure 90s/60s at this time, pulse oximetry of 96 on mechanical ventilator. HEENT: Intubated. NECK: No JVD. CVS: S1 and S2. Regular. ABDOMEN: Soft, nontender. EXTREMITIES: No clubbing, no cyanosis, no edema. LABORATORY VALUES: White count is 9.92, hemoglobin of 8.6, hematocrit of 29.8. Chemistry shows sodium 132, potassium 4.1. ABG done in the morning at 4 o'clock was 7.55 pH, bicarb was 33, pO2 of 135. ASSESSMENT AND PLAN: Ms. Radha Payan with acute respiratory failure, status post intubation, kyphoscoliosis, myasthenia gravis, chronic obstructive pulmonary disease, rheumatoid arthritis, and Parkinson disease. The patient has continued to be on Solu-Medrol, Mestinon, IVIG. The patient is in guarded condition at this time. We will discuss with family and code status has been discussed with Dr. Villanueva earlier. We will contact right as of now. The patient is currently intubated. Continue current medications. Awaiting acetylcholine receptor antibodies. Further recommendation per clinical course. We will continue to monitor the patient. MD MYRON Alexandra/MODL /[id number]
[2019-11-11] VITALS (27 sets, daily range): BP systolic 95–143; BP diastolic 64–91
--- NOTE | 2019-11-11 00:01 | Progress Note ---
DATE: 11/10/2019 Cardiology Progress Note SUBJECTIVE: The patient is intubated. OBJECTIVE: VITAL SIGNS: Temperature afebrile, pulse 86, respiratory rate 16, blood pressure 99/68, saturating 100% on mechanical ventilation. GENERAL: Thin, intubated and sedated, in no acute distress. CARDIOVASCULAR: Regular rate and rhythm. No murmurs, rubs, or gallops. LUNGS: Mechanical breath sounds bilaterally. ABDOMEN: Soft, nontender, and nondistended. NEURO AND PSYCH: Sedated. INPATIENT MEDICATIONS: Reviewed. LABORATORY DATA: Reviewed. TELEMETRY DATA: Reviewed, shows normal sinus rhythm. ASSESSMENT/PLAN: 1. Acute systolic congestive heart failure exacerbation. 2. Myasthenia gravis. 3. Atrial tachycardia. PLAN: Continue metoprolol as blood pressure and heart rate tolerates, remains in normal sinus rhythm. Echocardiogram showed EF of 35% to 40%. She will need ischemic workup once acute issues resolve. Currently appears euvolemic. Thank you for this consult. We will continue to follow. MD JUAN J Gardner/ZENOBIA /[id number]
[2019-11-11] MEDS: PROPOFOL IV EMULSION 50 ML IV SCH ×2 (00:20→06:35)
[2019-11-11 04:31] LABS: HEMATOCRIT 25.6 % (34.2-44.1); HEMOGLOBIN 7.5 g/dL (12.0-16.0); LYMPHOCYTES # (AUTO) 0.3 (1.0-3.2); LYMPHOCYTES % 5.6 % (18.0-39.1); MEAN CORPUSCULAR HEMOGLOBIN 24.8 pg (28-32); MEAN CORPUSCULAR HGB CONC 29.3 g/dL (31-35); MEAN CORPUSCULAR VOLUME 84.5 fL (81-99); MONOCYTES # (AUTO) 0.4 (0.2-0.8); MONOCYTES % 6.6 % (4.4-11.3); NEUTROPHILS # (AUTO) 5.2 (2.1-6.9); NEUTROPHILS % 87.5 % (38.7-80.0); PLATELET COUNT 189 x10e3/uL (140-360); RED BLOOD COUNT 3.03 x10e6/uL (3.6-5.1); RED CELL DISTRIBUTION WIDTH 21.6 % (11.7-14.4)
[2019-11-11 05:05] LABS: ALANINE AMINOTRANSFERASE 75 IU/L (0-55); ALBUMIN 2.2 g/dL (3.5-5.0); ALBUMIN/GLOBULIN RATIO 0.5 (0.8-2.0); ALKALINE PHOSPHATASE 61 IU/L (40-150); ANION GAP 10.4 mmol/L (8-16); BLOOD UREA NITROGEN 19 mg/dL (7-26); BUN/CREATININE RATIO 31 (6-25); CALCIUM 7.5 mg/dL (8.4-10.2); CARBON DIOXIDE 29 mmol/L (22-29); CHLORIDE 97 mmol/L (98-107); CREATININE, SERUM 0.62 mg/dL (0.57-1.11); EST GLOMERULAR FILTRATION RATE > 60 ML/MIN (60-); GLUCOSE 161 mg/dL (74-118); POTASSIUM 4.4 mmol/L (3.5-5.1); SODIUM 132 mmol/L (136-145)
[2019-11-11] MEDS: PYRIDOSTIGMINE BROMIDE 60 MG TAB PO SCH ×3 (05:38→19:58)
[2019-11-11] MEDS: DILTIAZEM HCL 125 ML IV SCH (05:56)
[2019-11-11] MEDS ORDERED: SODIUM CHLORIDE 0.9% 1000ML 1,000 ML IV SCH (06:30)
--- NOTE | 2019-11-11 06:37 | Diagnostic Imaging Report ---
EXAMINATION: CHEST SINGLE (PORTABLE) INDICATION: ^resp failure ^[id number] ^[id number] COMPARISON: 11/10/2019 FINDINGS: AP view TUBES and LINES: Stable endotracheal tube and right IJ central line. Partially seen nasogastric tube with tip extending beyond the inferior margin of film. LUNGS: Lungs are well inflated. Diffuse bilateral airspace opacities. PLEURA: Small to moderate left pleural effusion. No visible pneumothorax. HEART AND MEDIASTINUM: The cardiomediastinal silhouette is unremarkable. BONES AND SOFT TISSUES: No acute osseous lesion. Soft tissues are unremarkable. UPPER ABDOMEN: No free air under the diaphragm. IMPRESSION: No significant interval change from prior exam. Diffuse bilateral airspace opacities, representing moderate pulmonary edema and/or pneumonia. Small to moderate-sized left pleural effusion, unchanged. Signed by: Dr. Melvin Harper MD on 11/11/2019 6:34 AM
[2019-11-11] MEDS ORDERED: FUROSEMIDE INJ 10 MG/ML 4 ML VIAL IV ONE (07:30)
[2019-11-11] MEDS: METOPROLOL SUCCINATE 25 MG TAB XL PO SCH (09:00)
--- NOTE | 2019-11-11 09:37 | Progress Note ---
DATE: SUBJECTIVE: The patient was intubated yesterday. She is sedated on fentanyl at 175 mcg as well as Diprivan at 50. She remains on a PRVC mode of ventilation. No fevers. PHYSICAL EXAMINATION: VITAL SIGNS: The blood pressure is 110/71 and saturation is 99%. The pulse is 60. Respiratory rate is 16. HEENT: Shows no facial swelling or erythema. CARDIAC: Reveals regular rate and rhythm with normal S1 and S2. LUNGS: Auscultation of lungs reveals crackles at the bases. There are decreased breath sounds. ABDOMEN: Soft and nontender. There is no rebound or guarding. EXTREMITIES: Shows no leg edema or calf tenderness. LABORATORY DATA: BUN to creatinine ratio is 19 to 0.6 and the sodium is 132. Other electrolytes are within normal limits. The AST is 35 and the ALT 75. The albumin is 2.2. White blood cell count is 5.9 and hemoglobin is 7.5. The platelet count is 198. RADIOGRAPHIC DATA: Chest x-ray shows bilateral opacities and small left pleural effusion. IMPRESSION: 1. Yrkdu-ni-rbtxqgr respiratory failure. 2. Qruux-mg-aszbbso systolic congestive heart failure. 3. Myasthenia gravis. 4. Kyphoscoliosis leading to restrictive lung disease. 5. Gastroesophageal reflux. 6. Rheumatoid arthritis. 7. Parkinson disease. PLAN: 1. Lasix 40 mg IV. 2. Continue Solu-Medrol and Mestinon. 3. Repeat ABG. 4. Continue enteral feedings. 5. Continue to monitor blood counts. 6. Case discussed with nursing, family, Respiratory, and Neurology. Greater than 35 minutes in direct critical care time. Brad Villanueva MD [facility]/GILBERT[facility] /[id number]
[2019-11-11 09:51] LABS: ABG HCO3 34 mmol/L (22-26); ABG PCO2 51 mmHg (35-45); ABG PH 7.43 (7.35-7.45); ABG PO2 120 mmHg (80-105)
[2019-11-11] MEDS: PANTOPRAZOLE 40 MG 10ML VIAL IV SCH ×2 (10:00→16:38)
[2019-11-11] MEDS: METOCLOPRAMIDE HCL 10 MG/2ML VIAL IV SCH ×2 (10:00→16:38)
[2019-11-11] MEDS: FAMOTIDINE 20 MG/2 ML VIAL IV SCH ×2 (10:00→16:38)
[2019-11-11] MEDS: RASAGILINE 1 MG TAB PO SCH (10:01)
[2019-11-11] MEDS: GABAPENTIN 300 MG CAP PO SCH ×2 (10:01→19:58)
[2019-11-11] MEDS: AMITRIPTYLINE HCL 25 MG TAB PO SCH (10:01)
[2019-11-11] MEDS: METHYLPREDNISOLONE SOD SUCC 125 MG/2ML VIAL IV SCH ×2 (10:01→19:57)
--- NOTE | 2019-11-11 10:32 | Progress Note ---
DATE: SUBJECTIVE: The patient overnight had no new issues while on the ventilator, sedated. OBJECTIVE: CURRENT VITAL SIGNS: Temperature 98.6, pulse 67, blood pressure 114/76, and saturations 99% on ventilator. GENERAL: She is sedated on the vent. CARDIOVASCULAR: Regular rate and rhythm. LUNGS: Decreased breath sounds bilaterally. ABDOMEN: Soft. Good bowel sounds. EXTREMITIES: No clubbing or cyanosis. NEUROLOGICAL: She is sedated. ASSESSMENT/PLAN: 1. Acute respiratory failure with hypoxia. Continue ventilator per Pulmonary. 2. Myasthenia gravis. Still waiting on her studies to come back with results. 3. Reflux disease. Continue with her medications. 4. Hypertension. Continue with her metoprolol. 5. Anemia. Continue to monitor CBCs. Please see hospital chart for full details. MD IRIS Aguilera/ZENOBIA /[id number]
--- NOTE | 2019-11-11 11:08 | NUR ---
decompensated respiration yesterday now intubated 98.4 59 99/67 perrl no nuchal rigidity. rrr wheezy abd soft intubated and sedtaed a/p MG- on mestinon, tolerates therapy discussed care home immunomodulation greceived ivig iga wnl anticholinergic receptor antibodies pending if elevated may need to transfer to plasmapharesis
[2019-11-11] MEDS: CEFTRIAXONE SOD 1 GM/NS 50 ML 50 ML IV SCH (14:10)
[2019-11-11] MEDS: FENTANYL 2000MCG/NS 250 250 ML IV PRN (14:44)
[2019-11-11 15:54] LABS: ABG HCO3 31 mmol/L (22-26); ABG PCO2 45 mmHg (35-45); ABG PH 7.45 (7.35-7.45); ABG PO2 114 mmHg (80-105)
[2019-11-11] MEDS: FUROSEMIDE INJ 10 MG/ML 4 ML VIAL IV SCH ×2 (16:38→19:56)
[2019-11-11] MEDS: ENOXAPARIN SOD INJ 40 MG/0.4 ML SYR SC SCH (16:38)
--- NOTE | 2019-11-11 16:49 | Progress Note ---
DATE: 11/11/2019 Cardiology Progress Note SUBJECTIVE: The patient remains intubated and sedated. OBJECTIVE: VITAL SIGNS: Temperature 98.5 degrees, pulse 58, respiratory rate 16, blood pressure 121/80, oxygen saturation 99% on mechanical ventilation. GENERAL: Chronically ill-appearing woman, intubated and sedated, no acute distress. LUNGS: Clear to auscultation bilaterally. No wheezes or crackles. CARDIOVASCULAR: Normal rate. Regular rhythm. No murmur. Normal S1 and S2. ABDOMEN: Soft, nontender. EXTREMITIES: No edema. CARDIAC MEDICATIONS: Metoprolol succinate 25 mg p.o. daily. LABORATORY DATA: WBC 5.92, hemoglobin 7.5, hematocrit 25.6, platelets 189. Sodium 132, potassium 4.4, chloride 97, CO2 29, BUN 19, and creatinine 0.62. BNP 1588. Chest x-ray, diffuse bilateral airspace opacities representing moderate pulmonary edema and/or pneumonia, small to moderate size left pleural effusion unchanged. TELEMETRY: Telemetry was personally reviewed and interpreted, revealing normal sinus rhythm. IMPRESSION: 1. Acute systolic heart failure. 2. Myasthenia gravis. 3. Atrial tachycardia. RECOMMENDATIONS: Continue metoprolol as blood pressure and heart rate tolerate. Currently, she is in sinus rhythm. Echocardiogram showed EF of 35% to 40%. BNP is elevated. Start scheduled IV diuretics. She will need ischemic evaluation once acute issues resolve. Stent management per Pulmonary. Thank you for this consult. We will continue to follow. Radha Harris MD [facility]/MODL /[id number]
--- NOTE | 2019-11-11 18:42 | NUR ---
Per Dr. Christine Villanueva wean sedation for cpap trials. Pt extubated at 1530 to 4L NC. No s/s of distress noted at this time. Pt still receiving tube feedings through NGT at this time. Orders given to discontinue restraints. Report given to Zara BAZAN.
[2019-11-11 19:39] LABS: ANION GAP 12.9 mmol/L (8-16); BLOOD UREA NITROGEN 18 mg/dL (7-26); BUN/CREATININE RATIO 28 (6-25); CALCIUM 7.7 mg/dL (8.4-10.2); CARBON DIOXIDE 32 mmol/L (22-29); CHLORIDE 94 mmol/L (98-107); CREATININE, SERUM 0.65 mg/dL (0.57-1.11); EST GLOMERULAR FILTRATION RATE > 60 ML/MIN (60-); GLUCOSE 151 mg/dL (74-118); POTASSIUM 3.9 mmol/L (3.5-5.1); SODIUM 135 mmol/L (136-145)
[2019-11-11] MEDS: ZOLPIDEM TARTRATE 10 MG TAB PO PRN (19:58)
[2019-11-12] VITALS (25 sets, daily range): BP systolic 100–162; BP diastolic 64–107
[2019-11-12] MEDS: HYDROCODONE/APAP 5MG-325MG TAB PO PRN ×2 (03:12→17:56)
[2019-11-12 05:46] LABS: BASOPHILS % 0.1 % (0.0-1.0); HEMATOCRIT 29.1 % (34.2-44.1); HEMOGLOBIN 8.5 g/dL (12.0-16.0); LYMPHOCYTES # (AUTO) 0.4 (1.0-3.2); LYMPHOCYTES % 5.1 % (18.0-39.1); MEAN CORPUSCULAR HEMOGLOBIN 24.6 pg (28-32); MEAN CORPUSCULAR HGB CONC 29.2 g/dL (31-35); MEAN CORPUSCULAR VOLUME 84.3 fL (81-99); MONOCYTES # (AUTO) 1.2 (0.2-0.8); MONOCYTES % 13.5 % (4.4-11.3); PLATELET COUNT 235 x10e3/uL (140-360); RED BLOOD COUNT 3.45 x10e6/uL (3.6-5.1); RED CELL DISTRIBUTION WIDTH 21.7 % (11.7-14.4)
[2019-11-12] MEDS: DILTIAZEM HCL 125 ML IV SCH (05:49)
[2019-11-12] MEDS: PYRIDOSTIGMINE BROMIDE 60 MG TAB PO SCH ×3 (05:49→20:59)
[2019-11-12] MEDS ORDERED: CEPACOL SORE THROAT LOZENGES PO PRN (06:00)
--- NOTE | 2019-11-12 06:11 | NUR ---
PATIENT BP HIGH AND NO PRNS AVAILABLE WELL PATIENT COMPLAINING OF SORE THROAT FROM PRIOR INTUBATION NOTIFIED DR. BUCKENR AND WAS ORDERED TO GIVE CEPACOL LOZENGES AND CLONIDINE FOR HIGH BP PER ORDERS ENTERED. WILL CONT TO MONITOR.
[2019-11-12 06:15] LABS: ALANINE AMINOTRANSFERASE 56 IU/L (0-55); ALBUMIN 2.6 g/dL (3.5-5.0); ALBUMIN/GLOBULIN RATIO 0.6 (0.8-2.0); ALKALINE PHOSPHATASE 67 IU/L (40-150); ANION GAP 13.7 mmol/L (8-16); BLOOD UREA NITROGEN 18 mg/dL (7-26); BUN/CREATININE RATIO 29 (6-25); CALCIUM 7.8 mg/dL (8.4-10.2); CARBON DIOXIDE 36 mmol/L (22-29); CHLORIDE 91 mmol/L (98-107); CREATININE, SERUM 0.62 mg/dL (0.57-1.11); EST GLOMERULAR FILTRATION RATE > 60 ML/MIN (60-); GLUCOSE 161 mg/dL (74-118); POTASSIUM 3.7 mmol/L (3.5-5.1); SODIUM 137 mmol/L (136-145)
[2019-11-12] MEDS ORDERED: CLONIDINE HCL 0.1 MG TAB NG PRN (06:30)
--- NOTE | 2019-11-12 06:31 | NUR ---
PATIENT BP LOWERED BEFORE PHARMACY AUTHORIZED PRN MEDICATION SO WILL CONT TO MONITOR IF RISES ABOVE PARAMETERS AGAIN AND SUSTAINS THEN WILL ADMINISTER PRN BP MED ORDERED.
--- NOTE | 2019-11-12 06:41 | Diagnostic Imaging Report ---
EXAMINATION: CHEST SINGLE (PORTABLE) INDICATION: ^Resp Failure ^[id number] ^0615 COMPARISON: 11/11/2019 FINDINGS: AP view TUBES and LINES: Interval extubation. Stable right IJ central line and enteric tube. LUNGS: Lungs are well inflated. Pulmonary vascular congestion and mild sternal edema. PLEURA: No pneumothorax. Small left pleural effusion, decreased from prior exam. HEART AND MEDIASTINUM: The cardiomediastinal silhouette is unremarkable. Aorta is calcified and tortuous. BONES AND SOFT TISSUES: No acute osseous lesion. Soft tissues are unremarkable. UPPER ABDOMEN: No free air under the diaphragm. IMPRESSION: Pulmonary vascular congestion and mild interstitial edema. Underlying pneumonia in the perihilar regions cannot be excluded. Small left pleural effusion, decreased from prior exam. Signed by: Dr. Melvin Harper MD on 11/12/2019 6:38 AM
[2019-11-12] MEDS ORDERED: POTASSIUM CHLORIDE 20 MEQ TAB CR PO ONE (08:00)
[2019-11-12] MEDS: RASAGILINE 1 MG TAB PO SCH (08:03)
[2019-11-12] MEDS: FAMOTIDINE 20 MG/2 ML VIAL IV SCH ×2 (08:03→16:03)
[2019-11-12] MEDS: METHYLPREDNISOLONE SOD SUCC 125 MG/2ML VIAL IV SCH (08:03)
[2019-11-12] MEDS: METOCLOPRAMIDE HCL 10 MG/2ML VIAL IV SCH ×2 (08:03→16:03)
[2019-11-12] MEDS: METOPROLOL SUCCINATE 25 MG TAB XL PO SCH ×2 (08:03→08:21)
[2019-11-12] MEDS: FUROSEMIDE INJ 10 MG/ML 4 ML VIAL IV SCH (08:03)
[2019-11-12] MEDS: GABAPENTIN 300 MG CAP PO SCH (08:03)
[2019-11-12] MEDS: PANTOPRAZOLE 40 MG 10ML VIAL IV SCH ×2 (08:03→16:03)
[2019-11-12] MEDS: AMITRIPTYLINE HCL 25 MG TAB PO SCH (08:03)
[2019-11-12] MEDS ORDERED: POTASSIUM CHLORIDE 20MEQ/15ML UDC NG ONE (08:15)
[2019-11-12] MEDS: LISINOPRIL 2.5 MG TAB PO SCH (08:29)
[2019-11-12] MEDS ORDERED: FUROSEMIDE INJ 10 MG/ML 2 ML VIAL IV SCH (09:00)
[2019-11-12] MEDS ORDERED: METHYLPREDNISOLONE SOD SUCC 125 MG/2ML VIAL IV SCH (09:00)
[2019-11-12] MEDS ORDERED: METHYLPREDNISOLONE SOD SUCC 40 MG/ML VIAL 1ML IV SCH (09:00)
[2019-11-12] MEDS ORDERED: LISINOPRIL 10 MG TAB PO SCH ×2 (09:00)
[2019-11-12] MEDS ORDERED: METOPROLOL SUCCINATE 25 MG TAB XL PO SCH (09:00)
[2019-11-12] MEDS ORDERED: FUROSEMIDE INJ 10 MG/ML 4 ML VIAL IV SCH (09:00)
--- NOTE | 2019-11-12 09:13 | NUR ---
decompensated respiration yesterday now intubated 97.9 106 160/99 perrl no nuchal rigidity. rrr wheezy abd soft awake and responsive a/p MG- on mestinon, tolerates therapy discussed terminal system operator immunomodulation greceived ivig iga wnl anticholinergic receptor antibodies pending if elevated may need to transfer to plasmapharesis
--- NOTE | 2019-11-12 10:02 | Progress Note ---
DATE: SUBJECTIVE: The patient has diuresed over 3 L in the past 2 days. Her respiratory status improved. She is extubated on a nasal cannula. She still has a feeding tube in place. OBJECTIVE: VITAL SIGNS: The blood pressure is 157/96, pulse is 96, pulse ox is 96% on 5 L. HEENT: Shows no facial swelling or erythema. CARDIAC: Reveals regular rate and rhythm with normal S1 and S2. LUNGS: Auscultation of lungs shows decreased breath sounds at the bases. There is no wheezing. ABDOMEN: Soft, nontender. There is no rebound or guarding. EXTREMITIES: Shows no leg edema or calf tenderness. There is no cyanosis or clubbing. SKIN: Shows no rashes. LABORATORY DATA: White blood cell count is 8.6 and hemoglobin is 8.5. The platelet count is 235. The BUN to creatinine ratio is 18 to 0.62. The glucose is 161. Albumin is 2.6. RADIOGRAPHIC DATA: Chest x-ray shows some interstitial edema and some perihilar infiltrates. There is a decreased left pleural effusion. ASSESSMENT: 1. Axrwj-ol-nbxujme systolic congestive heart failure. 2. Acute on chronic respiratory failure. 3. Myasthenia gravis. 4. Kyphoscoliosis leading to restrictive lung disease. 5. Gastroesophageal reflux. 6. Rheumatoid arthritis. 7. Parkinson disease. PLAN: 1. Continue Lasix at 20 mg IV q.12. 2. Continue Toprol and begin low-dose lisinopril for afterload reduction. 3. Taper Solu-Medrol. 4. Continue Mestinon. 5. Discontinue Valentine. 6. G-tube with speech therapy evaluation for swallowing function. 7. Physical therapy. 8. Replace potassium. Brad Villanueva MD [facility]/MODL /[id number]
[2019-11-12] MEDS: ACETAMINOPHEN 325 MG TAB PO PRN (12:53)
[2019-11-12] MEDS: CEFTRIAXONE SOD 1 GM/NS 50 ML 50 ML IV SCH (13:17)
[2019-11-12] MEDS ORDERED: BELLADONNA ALK/PHENOBARBITAL 5 ML UDC PO ONE (14:00)
[2019-11-12] MEDS ORDERED: ACETAZOLAMIDE SODIUM 500 MG/VIAL IV ONE (15:30)
[2019-11-12] MEDS ORDERED: ACETAZOLAMIDE SODIUM 500 MG/VIAL IV NR (15:45)
--- NOTE | 2019-11-12 15:48 | Progress Note ---
DATE: 11/12/2019 Cardiology Progress Note SUBJECTIVE: The patient was successfully extubated. She denies any chest pain or shortness of breath. OBJECTIVE: VITAL SIGNS: Temperature 97.9 degrees, pulse 99, respiratory rate 20, blood pressure 145/92, and oxygen saturation 98% on 5 L nasal cannula. GENERAL: Chronically ill-appearing woman, awake and alert, in no acute distress. LUNGS: Clear to auscultation bilaterally. No wheezes or crackles. CARDIOVASCULAR: Normal rate. Regular rhythm. No murmur. Normal S1 and S2. ABDOMEN: Soft and nontender. EXTREMITIES: No edema. CARDIAC MEDICATIONS: Lisinopril 2.5 mg p.o. daily, metoprolol succinate 25 mg p.o. daily, and furosemide 20 mg IV q.12 hours. LABORATORY DATA: WBC 8.65, hemoglobin 8.5, hematocrit 29.1, and platelets 235. Sodium 137, potassium 3.7, chloride 91, CO2 36, BUN 18, and creatinine 0.62. Telemetry was personally reviewed and interpreted, revealing normal sinus rhythm. IMPRESSION: 1. Acute systolic heart failure. 2. Myasthenia gravis. 3. Atrial tachycardia. RECOMMENDATIONS: Continue metoprolol and lisinopril as heart failure and blood pressure tolerate. She is currently sinus rhythm. Echocardiogram showed LVEF of 35% to 40% and BNP was elevated yesterday. Recommend keeping IV Lasix at 40 mg b.i.d., as creatinine has been stable. Replete electrolytes. She will need ischemic evaluation once acute issues resolve. Thank you for this consult. We will continue to follow. Radha Harris MD [facility]/MODL /[id number]
[2019-11-12] MEDS: ENOXAPARIN SOD INJ 40 MG/0.4 ML SYR SC SCH (16:03)
--- NOTE | 2019-11-12 18:36 | NUR ---
Pt weaned from 5L NC to 2LNC during shift. Orders given to remove NGT and Valentine catheter. Pt started on diet, but having some coughing after eating. Pt encouraged to sit up at 90 degrees. Pt complaining of severe acid reflux this afternoon, orders given for GI cocktail. Per dr. Christine Villanueva ok for pt to go to IMCU if ok with attending MD. PT evaluation and bedside swallow ordered. Valentine removed at 1800, due to void tonight at 0000.
[2019-11-12] MEDS: METHYLPREDNISOLONE SOD SUCC 40 MG/ML VIAL 1ML IV SCH (20:59)
[2019-11-12] MEDS: ZOLPIDEM TARTRATE 10 MG TAB PO PRN (20:59)
[2019-11-12] MEDS: FUROSEMIDE INJ 10 MG/ML 2 ML VIAL IV SCH (20:59)
[2019-11-13] VITALS (14 sets, daily range): BP systolic 114–164; BP diastolic 69–107
[2019-11-13 05:38] LABS: BASOPHILS % 0.1 % (0.0-1.0); EOSINOPHILS % 0.1 % (0.0-6.0); HEMATOCRIT 33.1 % (34.2-44.1); HEMOGLOBIN 9.6 g/dL (12.0-16.0); LYMPHOCYTES # (AUTO) 0.6 (1.0-3.2); LYMPHOCYTES % 5.6 % (18.0-39.1); MEAN CORPUSCULAR HEMOGLOBIN 24.9 pg (28-32); MEAN CORPUSCULAR VOLUME 85.8 fL (81-99); MONOCYTES # (AUTO) 1.2 (0.2-0.8); MONOCYTES % 11.5 % (4.4-11.3); NEUTROPHILS # (AUTO) 8.5 (2.1-6.9); NEUTROPHILS % 82.2 % (38.7-80.0); PLATELET COUNT 274 x10e3/uL (140-360); RED BLOOD COUNT 3.86 x10e6/uL (3.6-5.1); RED CELL DISTRIBUTION WIDTH 22.5 % (11.7-14.4)
[2019-11-13] MEDS: ACETAZOLAMIDE SODIUM 500 MG/VIAL IV SCH (05:44)
[2019-11-13] MEDS: PYRIDOSTIGMINE BROMIDE 60 MG TAB PO SCH ×3 (05:45→22:21)
[2019-11-13 06:15] LABS: ALANINE AMINOTRANSFERASE 54 IU/L (0-55); ALBUMIN 2.5 g/dL (3.5-5.0); ALBUMIN/GLOBULIN RATIO 0.5 (0.8-2.0); ALKALINE PHOSPHATASE 85 IU/L (40-150); ANION GAP 12.7 mmol/L (8-16); BLOOD UREA NITROGEN 19 mg/dL (7-26); BUN/CREATININE RATIO 30 (6-25); CALCIUM 8.2 mg/dL (8.4-10.2); CARBON DIOXIDE 30 mmol/L (22-29); CHLORIDE 94 mmol/L (98-107); CREATININE, SERUM 0.64 mg/dL (0.57-1.11); EST GLOMERULAR FILTRATION RATE > 60 ML/MIN (60-); GLUCOSE 169 mg/dL (74-118); POTASSIUM 3.7 mmol/L (3.5-5.1); SODIUM 133 mmol/L (136-145)
--- NOTE | 2019-11-13 07:20 | NUR ---
Pt unable to void after kendall DC. bladder scan showed that patient is retaining 800mL of urine. Kendall reinserted. pt stable, Dr. Palomares ordered for patient to be transferred to [facility]. report given to oncoming BENI
[2019-11-13] MEDS ORDERED: POTASSIUM CHLORIDE 20 MEQ TAB CR PO SCH (08:00)
--- NOTE | 2019-11-13 08:38 | Diagnostic Imaging Report ---
EXAM: CHEST SINGLE (PORTABLE) DATE: 11/13/2019 8:01 AM INDICATION: Respiratory failure COMPARISON: 11/12/2019 FINDINGS: Please note that the patient is rotated limiting evaluation. Right IJ coursing central venous catheter identified in stable position. Enteric tube is no longer present. There are stable appearing left basilar and perihilar opacities which may reflect atelectasis. A small left pleural effusion is possible. There is no evidence for new large focal consolidation, pneumothorax, or significant volume pleural effusion. The cardiac mediastinal silhouette is partially obscured but appears grossly stable from the prior examination. No acute osseous abnormality is identified. IMPRESSION: No significant interval change from 11/12/2019. Grossly stable appearing left basilar and perihilar opacities which may reflect atelectasis. An underlying airspace process cannot be entirely excluded. Suspected small left pleural effusion. Signed by: Dr. Daren Haque MD on 11/13/2019 8:35 AM
[2019-11-13] MEDS: RASAGILINE 1 MG TAB PO SCH (09:00)
[2019-11-13] MEDS: FUROSEMIDE INJ 10 MG/ML 2 ML VIAL IV SCH ×2 (09:09→20:35)
[2019-11-13] MEDS: METOCLOPRAMIDE HCL 10 MG/2ML VIAL IV SCH (09:09)
[2019-11-13] MEDS: FAMOTIDINE 20 MG/2 ML VIAL IV SCH ×2 (09:09→16:14)
[2019-11-13] MEDS: METHYLPREDNISOLONE SOD SUCC 40 MG/ML VIAL 1ML IV SCH (09:09)
[2019-11-13] MEDS: PANTOPRAZOLE 40 MG 10ML VIAL IV SCH (09:09)
[2019-11-13] MEDS: LISINOPRIL 2.5 MG TAB PO SCH (09:29)
[2019-11-13] MEDS: METOPROLOL SUCCINATE 25 MG TAB XL PO SCH (09:30)
[2019-11-13] MEDS: HYDROCODONE/APAP 5MG-325MG TAB PO PRN ×3 (09:30→22:15)
--- NOTE | 2019-11-13 09:31 | Progress Note ---
DATE: SUBJECTIVE: The patient came in with acute respiratory failure, Myasthenic crisis, and also COPD exacerbation. He was intubated on Wednesday. The patient extubated yesterday. No complaints. She did have urinary retention. Post Avlentine removal, the patient had high volume of urine residual. Reinserted Valentine catheter. MEDICATIONS: Currently: 1. Rocephin. 2. Enoxaparin. 3. Furosemide. 4. Hydrocodone as needed. 5. Lisinopril. 6. Methylprednisone. 7. Metoprolol. 8. Pantoprazole. 9. Mestinon. 10. Azilect for her Parkinson's. 11. The patient also takes Ambien. PHYSICAL EXAMINATION: VITAL SIGNS: Temperature is afebrile 98.1, pulse of 84, respirations of 13, blood pressure is 137/88, pulse oximetry 100% on 2 L of oxygen. HEENT: Normocephalic and atraumatic. Pupils are reactive. CVS: S1 and S2 normal. Regular rate and rhythm. ABDOMEN: Tender in the epigastrium, otherwise normal. EXTREMITIES: No clubbing, no cyanosis, no edema. LABORATORY VALUES: White count is 10.27 down, hemoglobin 9.6, hematocrit of 33.1. Chemistry shows sodium 133, BUN of 19, and creatinine 0.64, CO2 was high at 30, glucose of 169. MICROBIOLOGY: No growth noted. IMAGING STUDIES: Done on the , chest x-ray from yesterday shows pulmonary vascular congestion and mild interstitial edema, underlying pneumonia in the perihilar region cannot be excluded. The patient had an echocardiogram done, which shows EF, which is depressed. ASSESSMENT: Ms. Radha Payan with: 1. Acute respiratory failure status post intubation, status post extubation. The patient is currently hemodynamically stable, still hypercapnic. 2. Acute on chronic congestive heart failure with EF, which is depressed. 3. History of myasthenia gravis. 4. History of Parkinson disease. 5. Hypertension. 6. Hyperlipidemia. 7. Generalized debility. 8. Chronic scoliosis. 9. Depression. PLAN: 1. The patient can be moved out to the [facility]. Continue cardiac monitoring. 2. Continue with current regimen of IV antibiotics. The patient's I's and O's will be maintained and followed. The patient also has urinary retention. Plan to keep the Valentine in and start Flomax. Continue monitoring the patient. Further recommendation per clinical course. Physical therapy to be instated and the patient will need nutritional support, nutritional consult was also done. Further recommendation per clinical course. We will continue to monitor the patient. MD GLENNA AlexandraJ/MODL /[id number]
--- NOTE | 2019-11-13 09:36 | NUR ---
extubated responsive and awake 97.9 106 160/99 perrl no nuchal rigidity. rrr wheezy abd soft awake and responsive strenght 4/5 a/p MG- on mestinon, tolerates therapy discussed halfway immunomodulation greceived ivig iga wnl anticholinergic receptor antibodies pending if elevated may need to transfer to plasmapharesis
--- NOTE | 2019-11-13 13:38 | NUR ---
Pt received from ICU at this time. Pt aox3 and able to verbalize needs. 0 s/s of acute distress noted.
[2019-11-13] MEDS: CEFTRIAXONE SOD 1 GM/NS 50 ML 50 ML IV SCH (14:34)
[2019-11-13] MEDS: ACETAMINOPHEN 325 MG TAB PO PRN (14:35)
[2019-11-13] MEDS ORDERED: SODIUM CHLORIDE 0.9% 250ML 250 ML ONE (14:42)
--- NOTE | 2019-11-13 15:29 | Progress Note ---
DATE: SUBJECTIVE: The patient feels better. She has less dyspnea. She is moving out of the intensive care unit. PHYSICAL EXAMINATION: VITAL SIGNS: The blood pressure is 164/107, and she is saturating 100% on nasal cannula. HEENT: No facial swelling or erythema. CARDIAC: Regular rate and rhythm with normal S1, S2. LUNGS: Auscultation of lungs reveals decreased breath sounds at the bases. There is no wheezing. ABDOMEN: Soft, nontender. There is no rebound or guarding. EXTREMITIES: No leg edema or calf tenderness. There is no cyanosis or clubbing. SKIN: No rashes. NEUROLOGICAL: No focal abnormalities. RADIOGRAPHIC DATA: Chest x-ray shows some kyphoscoliosis as well as suspected left pleural effusion and some bilateral airspace disease. LABORATORY DATA: The white blood cell count is 10.27 and hemoglobin is 9.6. The platelet count is 274. BUN to creatinine ratio is 19 to 0.64 and the other electrolytes are within normal limits. The albumin is 2.5. IMPRESSION: 1. Acute on chronic systolic congestive heart failure. 2. Acute on chronic respiratory failure. 3. Myasthenia gravis. 4. Kyphoscoliosis leading to restrictive lung disease. 5. Esophageal reflux. 6. Rheumatoid arthritis. 7. Parkinson disease. PLAN: 1. Continue current cardiac regimen. 2. Taper off Solu-Medrol. 3. Continue Mestinon. 4. Advance oral feedings. 5. Physical therapy. MD ANTOINETTE Abarca/ZENOBIA /[id number]
--- NOTE | 2019-11-13 16:04 | NUR ---
REC'D ORDER FOR LTAC PT SIGNED CHOICE LETTER FOR [facility] CHOICE LETTER IN CHART NOTIFIED ANGELES WITH [facility] OF [facility] FAXED TO [facility]; CONFIRMATION REC'D SPOKE WITH ANGELES AT [facility] WHO STATES SHE HAS A CALL INTO DR ENG TO SEE IF PT WILL MEET 25 DAY LOS
[2019-11-13] MEDS: PANTOPRAZOLE SOD 40 MG TABEC PO SCH (16:14)
--- NOTE | 2019-11-13 16:50 | NUR ---
Nutrition Intervention Note RD Recommendation(s) for Physician: -Recommend modifying diet to regular diet as medically appropriate -Recommend to resume Ensure Enlive nutrition supplement daily for added nutrition Plan of Care: RD following, monitoring for tolerance and adequacy Nutrition reason for involvement: follow up RD Assessment 11/12: Follow up. Pt was extubated on 11/10 and diet was advanced. It is recorded that pt is consuming 50-100% of meals. Recommend to resume Ensure Enlive daily for added nutrition. Will continue to monitor (11/10/19) Follow up. Pt was discussed during interdisciplinary rounds. Pt had required BiPAP per RN and is noted that pt is now mechanically ventilated. If pt is to remain intubated, recommend initiating enteral nutrition as medically appropriate. Will continue to monitor. (11/03/19) Pt is a 69 year old female admitted with myasthenia gravis. Pt reports she is eating >50% of her meals. Prior to admission, pt mentioned she was eating about half of her meals and was drinking a nutrition supplement daily. Pt stated she had unintentionally lost weight and used to weigh 130 lbs a year ago. Pt currently has a weight of 116 lbs in chart. This would be a 11% weight loss in 1 year which is considered non-significant weight loss. Pt was interested in a nutrition supplement daily during admission. No N/V, but pt reports diarrhea for the last 2 days. No chewing/swallowing issues. Will continue to monitor. Principal Problems/Diagnoses: myasthenia gravis PMH: rheumatoid arthritis, myasthenia gravis, chronic back pain GI: flat, soft, non-tender abdomen, last recorded BM 11/09 Skin: intact Labs: (11/13/19) Na 133, K 3.7, BUN 19, Cr 0.64, Glu 169, Ca 8.2 (11/10/19) Na 132, K 4.1, BUN 16, Cr 0.60, Glu 118 (11/03/19) Na 141, K 3.5, BUN 5, Cr 0.56, Glu 91 Meds: antibiotic, metoprolol, lisinopril, lasix, pepcid, lovenox Ht: 63 inches Wt: 121 lbs (11/09) 116 lbs (11/01) BMI: 21.4 kg/m2 IBW: 115 lbs Malnutrition Evaluation (11/03/19) The patient does not meet criteria for a specified degree of malnutrition at this time. Will re-evaluate at follow-up as appropriate. Energy intake: Adequate PO intake reported Weight loss: 11% weight loss in 1 year - Not significant weight loss Fat loss: pt showed some fat loss in tricep region Supporting Evidence: Fluid accumulation: no edema per MD note Functional Status: unable to evaluate Nutrition Prescription (Diet Order): GI soft diet Estimated Nutritional Needs: 7579-2586 calories/day (25-35 kcal/kg CBW) Weight used: 116 lbs 53-79 g protein/day (1-1.5 g pro/kg CBW) Weight used: 116 lbs Diet Adequacy: meeting calorie needs, meeting protein needs Tolerance: tolerating PO Diet Education Needs Assessment: Diet education not indicated Nutrition Care Level: moderate Nutrition Diagnosis: Unintended weight loss related to predicted h/o inadequate energy intake as evidenced by 11% weight loss in 1 year. Goal: Patient will meet 75-100% of estimated needs by follow up Progress: progressing Interventions: - General healthful diet, Commercial beverage Monitoring/Evaluation: - total energy intake, Total protein intake, Liquid supplement, Weight change Signed: Jing Bosch, RD, LD
--- NOTE | 2019-11-13 19:00 | NUR ---
RECEIVED PATIENT IN BEDSIDE SHIFT REPORT. PATIENT RESTING IN BED AT THIS TIME. HEADACHE REPORTED, PAIN 8/10, WILL MEDICATE WHEN TIME. O2@2L VIA NC. NO S&S OF DISTRESS NOTED. BED LOCKED IN LOWEST POSITION, SIDE RAILS UPX2, CALL LIGHT IN REACH.
[2019-11-13] MEDS: ENOXAPARIN SOD INJ 40 MG/0.4 ML SYR SC SCH (19:11)
--- NOTE | 2019-11-13 20:15 | Progress Note ---
DATE: Cardiology Progress Note SUBJECTIVE: The patient states that she feels better. Denies any chest pain or shortness of breath. OBJECTIVE: VITAL SIGNS: Temperature is 97.7, heart rate is 89, respirations are 20, blood pressure is 115/69, oxygen saturation is 97% on 2 L nasal cannula. GENERAL: A well-appearing, in no apparent distress. CARDIOVASCULAR: Regular rate and rhythm. LUNGS: Clear to auscultation. ABDOMEN: Soft, nontender, nondistended. EXTREMITIES: No clubbing, cyanosis, or edema. CARDIOVASCULAR MEDICATIONS: Reviewed. LABORATORY DATA: All laboratory data reviewed. Hemoglobin is 9.6, creatinine is 0.6. IMPRESSION: 1. Acute systolic congestive heart failure. 2. Myasthenia gravis. 3. Atrial tachycardia. RECOMMENDATIONS: Continue current doses of metoprolol and lisinopril for her optimal regimen for her heart failure. She remains in sinus rhythm. She will need an ischemic evaluation once her acute illness has been corrected. DO YAHAIRA Pickens/MODL /[id number]
[2019-11-13] MEDS: LEVALBUTEROL HCL SOLN NEBU 0.63 MG/3 ML NEB INH PRN (20:27)
[2019-11-13] MEDS: ZOLPIDEM TARTRATE 10 MG TAB PO PRN (22:15)
[2019-11-14] VITALS (8 sets, daily range): BP systolic 96–140; BP diastolic 71–95
[2019-11-14] MEDS: PYRIDOSTIGMINE BROMIDE 60 MG TAB PO SCH ×3 (06:25→21:05)
[2019-11-14] MEDS: ACETAZOLAMIDE SODIUM 500 MG/VIAL IV SCH (06:25)
[2019-11-14] MEDS: PANTOPRAZOLE SOD 40 MG TABEC PO SCH ×2 (06:52→17:07)
[2019-11-14] MEDS: FAMOTIDINE 20 MG/2 ML VIAL IV SCH ×2 (06:52→17:07)
[2019-11-14] MEDS: HYDROCODONE/APAP 5MG-325MG TAB PO PRN ×2 (07:02→21:05)
--- NOTE | 2019-11-14 07:32 | Progress Note ---
DATE: SUBJECTIVE: The patient is a 69-year-old female, who came in with acute respiratory failure. The patient had to be intubated two days prior to this and was extubated without any problems. The patient is feeling better. Transferred from ICU yesterday to Med/Surg floor with respiratory support, currently on 2 L of oxygen and doing well. LTAC transfer has been initiated. Awaiting room. The patient's medications reviewed and renewed. The patient continues to feel well. OBJECTIVE: VITAL SIGNS: The patient's temperature is 97.0, pulse of 83, respirations of 19, blood pressure is 119/74, pulse oximetry of 99% on 2 L of oxygen. HEENT: Normocephalic and atraumatic. The patient has a distortion in the neck. CVS: S1 and S2 normal. LUNGS: Decreased air entry. ABDOMEN: Soft, nontender, and nondistended. EXTREMITIES: No clubbing, no cyanosis, no edema. MUSCULOSKELETAL: Positive for changes of rheumatoid arthritis including joint deformities. LABORATORY VALUES: White count is 10,000 yesterday, hemoglobin of 9.6 and hematocrit of 33.1 with a decreased RDW. Chemistry; sodium 133, potassium of 3.7, BUN of 19 and creatinine 0.64, calcium is 8.2. Immunology still pending acetylcholine receptor antibodies. Stool culture was negative. Microbiology, no growth. IMAGING STUDIES: Yesterday's chest x-ray shows no significant interval changes, stable left basilar and perihilar opacities and small left pleural effusion. ASSESSMENT: Ms. Radha Payan with: 1. Acute respiratory failure, status post intubation, status post extubation. The patient with hypercapnia secondary to chronic obstructive pulmonary disease exacerbation compound with myasthenia crisis and also with scoliosis and reduce lung functions. 2. Acute on chronic heart failure with reduced ejection fraction. The patient is currently on torsemide for the same, lisinopril and metoprolol has been added. 3. Myasthenia gravis and Parkinson's disease. Continue on Mestinon and Azilect. Generalized debility and fatigue. The patient will be transferred to an LTAC for further evaluation and physical therapy and occupational therapy. Other conditions include hyperlipidemia and depression. PLAN: Again monitor I's and O's. Also, the patient has an additional diagnosis of urinary retention. We will keep the Valentine in for about a week or two, voiding trial in about a week or two and can add Flomax if necessary. Further recommendation per clinical course. We will continue to monitor the patient and we will follow up the patient after an LTAC and see her in the clinic. MD GLENNA AlexandraJ/MODL /[id number]
[2019-11-14 08:23] LABS: BASOPHILS % 0.2 % (0.0-1.0); EOSINOPHILS # (AUTO) 0.3 (0.0-0.4); EOSINOPHILS % 2.7 % (0.0-6.0); HEMATOCRIT 34.5 % (34.2-44.1); HEMOGLOBIN 10.4 g/dL (12.0-16.0); LYMPHOCYTES # (AUTO) 1.9 (1.0-3.2); LYMPHOCYTES % 16.1 % (18.0-39.1); MEAN CORPUSCULAR HEMOGLOBIN 25.5 pg (28-32); MEAN CORPUSCULAR HGB CONC 30.1 g/dL (31-35); MEAN CORPUSCULAR VOLUME 84.6 fL (81-99); MONOCYTES # (AUTO) 1.8 (0.2-0.8); MONOCYTES % 15.6 % (4.4-11.3); NEUTROPHILS # (AUTO) 7.4 (2.1-6.9); NEUTROPHILS % 64.9 % (38.7-80.0); PLATELET COUNT 341 x10e3/uL (140-360); RED BLOOD COUNT 4.08 x10e6/uL (3.6-5.1); RED CELL DISTRIBUTION WIDTH 22.9 % (11.7-14.4)
--- NOTE | 2019-11-14 08:34 | NUR ---
MOT INITIATED AND PLACED IN PACKET AT DESK
[2019-11-14 08:39] LABS: ALANINE AMINOTRANSFERASE 57 IU/L (0-55); ALBUMIN 2.7 g/dL (3.5-5.0); ALBUMIN/GLOBULIN RATIO 0.6 (0.8-2.0); ALKALINE PHOSPHATASE 67 IU/L (40-150); ANION GAP 13.6 mmol/L (8-16); BLOOD UREA NITROGEN 21 mg/dL (7-26); BUN/CREATININE RATIO 36 (6-25); CALCIUM 8.3 mg/dL (8.4-10.2); CARBON DIOXIDE 27 mmol/L (22-29); CHLORIDE 95 mmol/L (98-107); CREATININE, SERUM 0.59 mg/dL (0.57-1.11); EST GLOMERULAR FILTRATION RATE > 60 ML/MIN (60-); GLUCOSE 87 mg/dL (74-118); POTASSIUM 3.6 mmol/L (3.5-5.1); SODIUM 132 mmol/L (136-145)
[2019-11-14] MEDS: FUROSEMIDE INJ 10 MG/ML 2 ML VIAL IV SCH ×2 (09:10→21:05)
[2019-11-14] MEDS: RASAGILINE 1 MG TAB PO SCH (09:16)
[2019-11-14] MEDS: METOPROLOL SUCCINATE 25 MG TAB XL PO SCH (09:17)
[2019-11-14] MEDS: LISINOPRIL 2.5 MG TAB PO SCH (09:17)
[2019-11-14] MEDS: ACETAMINOPHEN 325 MG TAB PO PRN (11:42)
--- NOTE | 2019-11-14 12:14 | Progress Note ---
DATE: Cardiology Progress Note SUBJECTIVE: The patient is found sleeping comfortably. No current symptoms or events. OBJECTIVE: VITAL SIGNS: Temperature is 97.4, heart rate is 87, respirations are 18, blood pressure is 100/76, oxygen saturation is 100% on 2 L nasal cannula. GENERAL: Well appearing, in no apparent distress. CARDIOVASCULAR: Regular rate and rhythm. LUNGS: Clear to auscultation. ABDOMEN: Soft, nontender, nondistended. EXTREMITIES: No clubbing, cyanosis, or edema. CARDIOVASCULAR MEDICATIONS: Reviewed. LABORATORY DATA: Reviewed. TELEMETRY: Monitoring was reviewed and showed normal sinus rhythm. IMPRESSION: 1. Acute systolic congestive heart failure. 2. Myasthenia gravis. 3. Urinary retention. 4. Atrial tachycardia. RECOMMENDATIONS: Continue current cardiovascular medications including metoprolol and lisinopril. Continue Lasix for intravenous diuresis. The patient can get a stress test as an outpatient for ischemia evaluation. Edison Iraheta DO BM/MODL /[id number]
--- NOTE | 2019-11-14 12:35 | NUR ---
RECEIVED CALL FROM ANGELES TINS[facility]. STATES THEY NEEDED TO KNOW IF THE PT WILL BE AT [facility] FOR AT LEAST 25DAYS. CALL TO DR. ENG. STATES HE CANNOT SAY FOR SURE. NOTIFIED ANGELES. STATES SHE WILL NOTIFY HER AUTH TEAM.
[2019-11-14] MEDS: CEFTRIAXONE SOD 1 GM/NS 50 ML 50 ML IV SCH (15:37)
[2019-11-14] MEDS: ENOXAPARIN SOD INJ 40 MG/0.4 ML SYR SC SCH (17:07)
[2019-11-14] MEDS: DIPHENOXYLATE/ATROPINE TAB PO PRN (17:07)
--- NOTE | 2019-11-14 19:00 | NUR ---
RECEIVED PATIENT IN BEDSIDE SHIFT REPORT. PATIENT RESTING IN BED AT THIS TIME. NO PAIN REPORTED. NO S&S OF DISTRESS NOTED. BED LOCKED IN LOWEST POSITION, SIDE RAILS UPX2, CALL LIGHT IN REACH.
--- NOTE | 2019-11-14 19:20 | Progress Note ---
DATE: SUBJECTIVE: The patient was transferred out of the Intensive Care Unit. She is ambulating a little with physical therapy. She is awaiting potential transfer to LTAC. PHYSICAL EXAMINATION: VITAL SIGNS: Blood pressure is 96/71, saturation is 96% on 2 L. HEENT: Shows no facial swelling or erythema. CARDIAC: Reveals regular rate and rhythm with a normal S1 and S2. LUNGS: Auscultation of lungs reveals rhonchorous breath sounds bilaterally. There is no wheezing. ABDOMEN: Soft and nontender. There is no rebound or guarding. EXTREMITIES: Shows no leg edema or calf tenderness. LABORATORY DATA: White blood cell count is 11.4 and hemoglobin is 10.4. The platelet count is 341. BUN to creatinine ratio is normal. Other electrolytes within normal limits. Albumin is 2.7. IMPRESSION: 1. Acute on chronic systolic congestive heart failure. 2. Myasthenia gravis. 3. Restrictive lung disease secondary to kyphoscoliosis. 4. Rheumatoid arthritis. 5. Parkinson's disease. PLAN: 1. Continue current cardiac regimen. 2. Continue Mestinon. 3. Continue physical therapy. 4. Await transfer to LTAC. MD ANTOINETTE Abarca/ZENOBIA /[id number]
[2019-11-14] MEDS: ZOLPIDEM TARTRATE 10 MG TAB PO PRN (21:05)
[2019-11-15] VITALS (8 sets, daily range): BP systolic 100–139; BP diastolic 73–85
[2019-11-15] MEDS: ACETAZOLAMIDE SODIUM 500 MG/VIAL IV SCH (06:13)
[2019-11-15] MEDS: PYRIDOSTIGMINE BROMIDE 60 MG TAB PO SCH ×3 (06:13→21:16)
--- NOTE | 2019-11-15 07:10 | NUR ---
PATIENT IS AWAKE, ALERT, IN STABLE CONDITION WITH NO S/S OF RESPIRATORY DISTRESS. NO PAIN VOICED. TELEMETRY APPLIED. O2 AT 2L NC. MARES INTACT AND DRAINING- URINE IS YELLOW AND CLEAR. CALL LIGHT IS WITHIN REACH, PATIENT INSTRUCTED TO CALL FOR ASSISTANCE NEEDED.
[2019-11-15] MEDS: HYDROCODONE/APAP 5MG-325MG TAB PO PRN ×2 (08:40→18:31)
[2019-11-15] MEDS: LISINOPRIL 2.5 MG TAB PO SCH (08:45)
[2019-11-15] MEDS: FAMOTIDINE 20 MG/2 ML VIAL IV SCH ×2 (08:45→17:04)
[2019-11-15] MEDS: FUROSEMIDE INJ 10 MG/ML 2 ML VIAL IV SCH ×2 (08:45→20:43)
[2019-11-15] MEDS: PANTOPRAZOLE SOD 40 MG TABEC PO SCH ×2 (08:45→17:04)
[2019-11-15] MEDS: RASAGILINE 1 MG TAB PO SCH (08:45)
[2019-11-15] MEDS: METOPROLOL SUCCINATE 25 MG TAB XL PO SCH (08:45)
--- NOTE | 2019-11-15 10:24 | Progress Note ---
DATE: SUBJECTIVE: This is a 69-year-old female who came in with acute respiratory failure status post intubation and extubation in the ICU. The patient is feeling better and awaiting a transfer to [place]. No chest pain. Positive for some shortness of breath. No nausea, no vomiting. She had a one bout of diarrhea yesterday . OBJECTIVE: VITAL SIGNS: 97.1 temperature, pulse of 93, respirations of 20, blood pressure is 132/84, pulse oximetry of 98%. HEENT: Normocephalic and atraumatic. Pupils are reactive. CVS: S1 and S2 normal. Regular rate and rhythm. ABDOMEN: Nontender and nondistended. EXTREMITIES: No clubbing, no cyanosis, no edema. LABORATORY VALUES: From yesterday, white count is 11,000 at a slight neutrophil shift of 7.4. Imaging studies, within normal limits since last documented. Microbiology, no growth. ASSESSMENT: 1. Ms. Radha Payan with congestive heart failure with reduced ejection fraction. 2. Myasthenia gravis. 3. Restrictive lung disease. 4. Parkinson's disease. 5. Leukocytosis. 6. Debility and generalized weakness. PLAN: Continue current regimen. Plan is to send her to [facility] for physical therapy. Continue same program. Further recommendations as on clinical outcomes. MD MYRON Alexandra/MODL /[id number]
--- NOTE | 2019-11-15 13:46 | NUR ---
extubated responsive and awake 97.4 86 111/74 perrl no nuchal rigidity. rrr wheezy abd soft awake and responsive strenght 4/5 a/p MG- on mestinon, tolerates therapy discussed intermediate card tender immunomodulation greceived ivig iga wnl anticholinergic receptor antibodies pending - 11/15/2019 but patient stable
--- NOTE | 2019-11-15 13:50 | NUR ---
RECEIVED CALL FROM [facility] AGAIN. STATES THE PT MEETS, BUT THEY STILL NEED TO KNOW IF THE PT WILL BE ABLE TO STAY AT LEAST 25DAYS. CALL BACK TO DR. ENG. NO ANSWER. LEFT MESSAGE FOR PLAN OF CARE. IF PT NOT ABLE TO STAY AT [facility] FOR 25DAYS WOULD HE LIKE ME TO ORDER SNF OR DC HOME. AWAITING RESPONSE.
[2019-11-15] MEDS: ACETAMINOPHEN 325 MG TAB PO PRN ×2 (14:08→22:15)
[2019-11-15] MEDS: CEFTRIAXONE SOD 1 GM/NS 50 ML 50 ML IV SCH (14:19)
[2019-11-15] MEDS: ENOXAPARIN SOD INJ 40 MG/0.4 ML SYR SC SCH (17:04)
--- NOTE | 2019-11-15 19:01 | Progress Note ---
DATE: SUBJECTIVE: The patient feels better. She is walking a little bit with some assistance. She is not complaining of dyspnea or fevers. PHYSICAL EXAMINATION: VITAL SIGNS: The patient is afebrile. The blood pressure is 120/79, saturation is 100% on 2 L, and the pulse is 73. HEENT: Shows no facial swelling or erythema. CARDIAC: Reveals regular rate and rhythm with normal S1 and S2. LUNGS: Auscultation of lungs reveals rhonchorous breath sounds bilaterally. There is no wheezing. ABDOMEN: Soft and nontender. There is no rebound or guarding. EXTREMITIES: Shows no leg edema or calf tenderness. LABORATORY DATA: White blood cell count is 11.4 and the hemoglobin is 10.4. The platelet count is 341. The BUN to creatinine ratio is 21 to 0.59. The potassium is 3.6. Albumin is 2.7. IMPRESSION: 1. [id number] systolic congestive heart failure. 2. Myasthenia gravis. 3. Kyphoscoliosis leading to restrictive lung disease. 4. Parkinson disease. 5. Rheumatoid arthritis. PLAN: 1. Continue Mestinon. 2. Continue current cardiac regimen. 3. Continue physical therapy. 4. The patient is asking to go home with home health as opposed to LTAC. Brad Villanueva MD [facility]/ZENOBIA /[id number]
--- NOTE | 2019-11-15 19:11 | NUR ---
PATIENT IS IN STABLE CONDITION WITH NO S/S OF RESPIRATORY DISTRESS- NO PAIN VOICED. CALL LIGHT IS WITHIN REACH--PATIENT INSTRUCTED TO CALL FOR ASSISTANCE NEEDED. BEDSIDE SHIFT REPORT GIVEN TO ONCOMING NURSE.
--- NOTE | 2019-11-15 19:30 | NUR ---
patient received awake, alert, lying quietly in bed. no c/o pain noted. pm assessment complete. call brunson placed within reach. patient instructed to call for assistance when needed.
[2019-11-15] MEDS ORDERED: ZOLPIDEM TARTRATE 10 MG TAB PO PRN (21:45)
--- NOTE | 2019-11-15 22:15 | NUR ---
Patient medicated with tylenol 650mg po for c/o headache at this time per patients request.
[2019-11-16] VITALS: BP 118/77
[2019-11-16 04:00] VITALS: BP 99/70
[2019-11-16] MEDS: PYRIDOSTIGMINE BROMIDE 60 MG TAB PO SCH ×2 (05:47→14:08)
[2019-11-16] MEDS: ACETAZOLAMIDE SODIUM 500 MG/VIAL IV SCH (06:00)
--- NOTE | 2019-11-16 07:10 | NUR ---
PATIENT IS AWAKE AND IN STABLE CONDITION WITH NO S/S OF RESPIRATORY DISTRESS. PATIENT C/O GENERALIZE PAIN 10/10 AND IS AWARE RN WILL BRING HER MEDICATION WHEN IT BECOMES AVAILABLE. O2 AND TELE APPLIED. MARES INTACT AND DRAINING; URINE IS YELLOW AND CLEAR. CALL LIGHT IS WITHIN REACH, PATIENT INSTRUCTED TO CALL FOR ASSISTANCE NEEDED.
[2019-11-16 07:49] VITALS: BP 119/70
--- NOTE | 2019-11-16 08:03 | Progress Note ---
DATE: SUBJECTIVE: The patient is a 69-year-old female, who came in acute respiratory distress, hypercapnia. The patient is feeling better. The patient also had leukocytosis and wants to go home. LTAC offered, SNF offered, but the patient refused. We will go ahead and send home with physical therapy and also oxygen and possible BiPAP. Hospice was entertained. The patient is thinking about it. The patient has multiple comorbidities. Medicines reviewed. OBJECTIVE: VITAL SIGNS: Temperature is 97.6, pulse of 76, respirations of 18, blood pressure is 99/70, pulse oximetry of 100% on 2 L of oxygen. HEENT: Normocephalic and atraumatic. NECK: The patient has neck deformity. CVS: S1 and S2. Regular. LUNGS: Clear. ABDOMEN: At this time, abdomen is nontender and nondistended. EXTREMITIES: No clubbing, no cyanosis, no edema. LABORATORY VALUES: The patient's chemistries and CBCs have been within normal limits. Sodium is slightly decreased. The acetylcholine receptor antibodies come back as negative. Serology, coronavirus was nondetected. ASSESSMENT: Ms. Radha Payan with: 1. Acute on chronic congestive heart failure with reduced ejection fraction. 2. Myasthenia gravis. 3. Kyphoscoliosis. 4. Parkinson's disease. 5. Rheumatoid arthritis. 6. Chronic pain. PLAN: Continue with current management. Can be discharged home with O2 and arrange for BiPAP at home. Hospice has been entertained. Home health will be arranged. The patient does not want LTAC or SNF at this time. We will continue monitoring the patient as an outpatient and also will require blood work after discharge. This was conveyed to the patient. The patient is alert and oriented x3 and is completely aware of her circumstances and is able to make a good judgment. MD MYRON Alexandra/GILBERTOL /[id number]
[2019-11-16] MEDS: LISINOPRIL 2.5 MG TAB PO SCH (08:51)
[2019-11-16] MEDS: RASAGILINE 1 MG TAB PO SCH (08:51)
[2019-11-16] MEDS: PANTOPRAZOLE SOD 40 MG TABEC PO SCH (08:51)
[2019-11-16] MEDS: FUROSEMIDE INJ 10 MG/ML 2 ML VIAL IV SCH (08:53)
[2019-11-16] MEDS: FAMOTIDINE 20 MG/2 ML VIAL IV SCH (08:53)
[2019-11-16] MEDS: METOPROLOL SUCCINATE 25 MG TAB XL PO SCH (08:53)
[2019-11-16 09:19] VITALS: BP 136/84
--- NOTE | 2019-11-16 09:20 | NUR ---
CALL TO PT TO DISCUSS HOME HEALTH AND HOME O2 CHOICES. PT STATES SHE HAS NEVER HAD HOME HEALTH BEFORE. EXPLAINED TO PT THE SERVICES ORDERED BY DR. ENG. SN/PT AND O2/BIPAP STATES SHE DID NOT NEED PT. SHE CAN EXERCISE ON HER OWN AT HOME. STATES SHE HAS WALKERS, CANES, SC, SCOOTER AND ELECTRIC BED AT HOME. PT STATES SHE WOULD LIKE HOSPICE. STATES HER MOTHER WAS ON HOSPICE AND THEY DID THE SAME THINGS. CM ASKED IF SHE WOULD LIKE TO SPEAK W OUR PALLIATIVE TEAM SO THAT SHE CAN MAKE AN INFORMED DECISION. PT AGREED CALL TO DR. ENG. HE WAS OK W A PALLIATIVE CONSULT. MORIS BAZAN NOTIFIED.
[2019-11-16 11:15] VITALS: BP 104/83
[2019-11-16] MEDS: DIPHENOXYLATE/ATROPINE TAB PO PRN (11:39)
--- NOTE | 2019-11-16 11:40 | NUR ---
SUZAN BENNETT. DIAPER APPLIED. PATIENT IS AWARE TO CALL ONCE SHE URINATES.
--- NOTE | 2019-11-16 12:25 | NUR ---
WENT OT ROOM BECAUSE PT ASKED FOR HOSPICE, GAVE CHOICES IN NETWORK SHE SIGNED CHOICE FORM FOR [facility] FILED IN CHART ALSO WAS ABLE TO EDUCATE ABOUT IMM SINGED AND FILED IN CHART. SHE STATES SHE WANTS TO GO HOME TODAY. CONTACTED REP, SHE WILL BE HERE AT 1PM TO HAVE MEETING WITH PT AND SIGN PAPERWORK AND WILL ASSIST WITH GETTING HOME TODAY.
[2019-11-16] MEDS: CEFTRIAXONE SOD 1 GM/NS 50 ML 50 ML IV SCH (14:08)
[2019-11-16 15:30] VITALS: BP 102/69
--- NOTE | 2019-11-16 15:31 | Progress Note ---
DATE: Cardiology Progress Note. SUBJECTIVE: The patient is feeling better. Denies any chest pain or shortness of breath. OBJECTIVE: VITAL SIGNS: Stable, temperature is 97.3, heart rate 77, respirations 16, blood pressure is 104/83, oxygen saturation 100% on room air. GENERAL: Well appearing, no apparent distress. CARDIOVASCULAR: Regular rate and rhythm. LUNGS: Clear to auscultation. ABDOMEN: Soft, nontender, nondistended. EXTREMITIES: No clubbing, cyanosis, or edema. VASCULAR: 2+ pulses. MEDICATIONS: Reviewed. LABORATORY DATA: Reviewed. IMPRESSION: 1. Acute systolic congestive heart failure. 2. Myasthenia gravis. 3. Urinary retention. 4. Atrial tachycardia. RECOMMENDATIONS: Continue current cardiovascular regimen. Continue Lasix for diuresis. The patient may be discharged from a cardiovascular standpoint with an outpatient ischemic evaluation. DO YAHAIRA Pickens/MODL /[id number]
--- NOTE | 2019-11-16 15:58 | NUR ---
PT WILL BE PICKED UP BY [facility] TO RETURN HOME ON HOSPICE AT 530.
--- NOTE | 2019-11-16 16:41 | Progress Note ---
DATE: SUBJECTIVE: The patient is feeling better. She has less dyspnea. She is still weak and having some difficulty ambulating. PHYSICAL EXAMINATION: VITAL SIGNS: The blood pressure is 102/69, saturation is 100%, and the pulse is 88. HEENT: Shows no facial swelling or erythema. CARDIAC: Reveals regular rate and rhythm with normal S1 and S2. LUNGS: Auscultation of lungs reveals clear breath sounds bilaterally. There is no wheezing. ABDOMEN: Soft and nontender. There is no rebound or guarding. EXTREMITIES: Shows no leg edema or calf tenderness. There is no cyanosis or clubbing. SKIN: Shows no rashes. NEUROLOGICAL: Shows no focal abnormalities. LABORATORY DATA: Sodium is 132 and the BUN to creatinine ratio is 21 to 0.59. Albumin is 2.7. White blood cell count of 11.4 and the hemoglobin is 10.4. The platelet count is 341. IMPRESSION: 1. [id number]-mdkcfbz systolic congestive heart failure. 2. Myasthenia gravis. 3. Kyphoscoliosis leading to restrictive lung disease. 4. Parkinson disease. 5. Rheumatoid arthritis. PLAN: 1. The patient is scheduled for discharge. 2. Physical therapy. 3. Continue current cardiac regimen. 4. Continue Mestinon. MD ANTOINETTE Abarca/ZENOBIA /[id number]
[2019-11-16] MEDS: LEVALBUTEROL HCL SOLN NEBU 0.63 MG/3 ML NEB INH PRN (17:30)
--- NOTE | 2019-11-16 19:00 | NUR ---
PATIENT DISCHARGE HOME WITH HOSPICE- PATIENT OFF THE UNIT AT 1800 PER STRETCHER WITH 2 PERSON EMS SERVICE. PATIENT IN STABLE CONDITION WITH NO S/S OF RESPIRATORY DISTRESS- NO PAIN VOICED. 02 APPLIED. IJ REMOVED WITH TIP INTACT AND DRESSING APPLIED. PATIENT VOIDED AND BLADDER SCAN COMPLETED WITH 52CC REMAINING. DR. ENG AWARE OF BLADDER SCAN RESULTS AND PATIENT TO DISCHARGE HOME PER AMBULANCE WITH HOSPICE CARE AT HOME. EQUIPMENT DELIVERED AT HOME PRIOR TO DISCHARGE PER [facility] REP. PERSONAL ITEMS OF PATIENT WERE GIVEN TO THE PATIENT'S DAUGHTER.
== END 2019-11-16 18:22 | disposition hospice, home (50) | DRG 208 ==
LOC: ER 17:27 → ERHOLD 19:43 → ICU 21:18 → MED/SURG3 11-13 13:27
PROVIDERS: ADMIT Family Medicine; ATTEND Family Medicine
PROC: 5A09357 Assistance with Respiratory Ventilation, Less than 24 Consecutive Hours, Continuous Positive Airway Pressure (ICD-10-PCS; principal; 2019-11-02)
PROC: 30233N1 Transfusion of Nonautologous Red Blood Cells into Peripheral Vein, Percutaneous Approach (ICD-10-PCS; 2019-11-03)
PROC: 5A1945Z Respiratory Ventilation, 24-96 Consecutive Hours (ICD-10-PCS; 2019-11-10)
PROC: 0BH17EZ Insertion of Endotracheal Airway into Trachea, Via Natural or Artificial Opening (ICD-10-PCS; 2019-11-10)
PROC: 02HV33Z Insertion of Infusion Device into Superior Vena Cava, Percutaneous Approach (ICD-10-PCS; 2019-11-10)
PROC: B548ZZA Ultrasonography of Superior Vena Cava, Guidance (ICD-10-PCS; 2019-11-10)
DX: J96.21 Acute and chronic respiratory failure with hypoxia (principal); G70.01 Myasthenia gravis with (acute) exacerbation; I50.23 Acute on chronic systolic (congestive) heart failure; D62 Acute posthemorrhagic anemia; N25.81 Secondary hyperparathyroidism of renal origin; M80.08XA Age-related osteoporosis with current pathological fracture, vertebra(e), initial encounter for fracture; J44.1 Chronic obstructive pulmonary disease with (acute) exacerbation; I47.1 Supraventricular tachycardia; J96.22 Acute and chronic respiratory failure with hypercapnia; M06.9 Rheumatoid arthritis, unspecified; K44.9 Diaphragmatic hernia without obstruction or gangrene; G20 Parkinson's disease; Z83.3 Family history of diabetes mellitus; Z82.3 Family history of stroke; Z80.9 Family history of malignant neoplasm, unspecified; R04.0 Epistaxis; Z91.048 Other nonmedicinal substance allergy status; Z87.891 Personal history of nicotine dependence; Z79.891 Long term (current) use of opiate analgesic; J44.9 Chronic obstructive pulmonary disease, unspecified; M41.9 Scoliosis, unspecified; I11.0 Hypertensive heart disease with heart failure; K21.9 Gastro-esophageal reflux disease without esophagitis; R33.9 Retention of urine, unspecified; Z11.59 Encounter for screening for other viral diseases
CPT/HCPCS: 31500; 36415; 36600; 71045; 71260; 74018; 80048; 80053; 82270; 82306; 82550; 82553; 82784; 82805; 83519; 83605; 83735; 83880; 83970; 84484; 85014; 85018; 85025; 86255; 86850; 86900; 86920; 87040; 87635; 92950; 93005; 93306; 94003; 94640; 94660; 97139; 99284; J0610; J0692; J0696; J1200; J1561; J1650; J1940; J2250; J2550; J2765; J2920; J2930; J3475; J7030; J7040; J7050; P9016; Q9967